=== PATIENT | female | born 1935 | race Caucasian/White ===

== ENCOUNTER 2017-06-03 09:43 | Emergency (ER) | payer MEDICARE, OTHER ==
[2017-06-03] MEDS ORDERED: Aluminum Hydroxide/Magnesium Hydroxide/Simethicone Susp 30 ML Cup PO ONE (10:49)
[2017-06-03] MEDS ORDERED: Aspirin 81 MG Tab.Chew PO ONE (11:35)
[2017-06-03] MEDS ORDERED: Aspirin 81 MG Tab.Chew ONE (11:36)
--- NOTE | 2017-06-03 11:40 | EDM.PDOC ---
ED HPI GENERAL MEDICAL PROBLEM - General Chief Complaint: General Stated Complaint: STOMACH ISSUES Time Seen by Provider: 06/03/17 10:39 Source of Information: Reports: Patient History Limitations: Reports: No Limitations - History of Present Illness INITIAL COMMENTS - FREE TEXT/NARRATIVE: This lady comes in with a complaint of upper abdominal pain. It's been going on for the last few days. The pain is on and off kind of in the epigastric region. Nothing seems to make it worse but it seems to go away when she relaxes" of her feet. She hasn't tried any kind of antiacids. She doesn't have any history of GI problems there's no history of any kind of heart disease. She did a lot of walking yesterday. She says she's Been feeling bad for a number of weeks. She seems to be better after eating according to her . This patient has Alzheimer's disease so her history is not very reliable however her keeps her on track and corrects her history is needed - Related Data Allergies Allergy/AdvReac Type Severity Reaction Status Date / Time propoxyphene Allergy Mild Rash Verified 12/13/13 13:44 Home Meds: Home Meds Donepezil HCl 10 mg PO DAILY 06/03/17 [History] Gabapentin [Neurontin] 100 mg PO DAILY 06/03/17 [History] Latanoprost [Xalatan 0.005% Ophth Soln] 1 drop EYEBOTH DAILY 06/03/17 [History] Timolol Maleate/PF [Timoptic 0.25% Ocudose Drop] 1 drop EYEBOTH DAILY 06/03/17 [ History] atorvaSTATin [Lipitor] 40 mg PO BEDTIME 06/03/17 [History] Past Medical History - Past Health History Medical/Surgical History: Denies Medical/Surgical History Neurological History: Reports: Neuropathy, Peripheral - Infectious Disease History Infectious Disease History: Reports: Chicken Pox, Measles, Mumps Social & Family History - Family History Neurological: Reports: Alzheimers Disease - Tobacco Use Smoking Status *Q: Never Smoker Second Hand Smoke Exposure: No - Caffeine Use Caffeine Use: Reports: Coffee Other Caffeine Use: 1 cup a day - Recreational Drug Use Recreational Drug Use: No ED ROS GENERAL - Review of Systems Review Of Systems: ROS reveals no pertinent complaints other than HPI. ED EXAM, GI/ABD - Physical Exam Exam: See Below Exam Limited By: No Limitations Eyes: Bilateral: Normal Appearance Ears: Normal External Exam Throat/Mouth: Normal Inspection, Normal Oropharynx Head: Atraumatic Neck: Normal Inspection Respiratory/Chest: No Respiratory Distress, Lungs Clear Cardiovascular: Normal Peripheral Pulses, Regular Rate, Rhythm (Seen her when she first came in here to really struggle to) Back Exam: Normal Inspection Extremities: Normal Inspection Neurological: Alert, CN II-XII Intact, No Motor/Sensory Deficits, Confused Psychiatric: Normal Affect Skin Exam: Warm Course - Vital Signs Last Recorded V/S: Last Vital Signs Temp 36.0 C 06/03/17 14:19 Pulse 58 L 06/03/17 14:19 Resp 14 06/03/17 14:19 BP 139/66 06/03/17 14:19 Pulse Ox 97 06/03/17 14:19 - Orders/Labs/Meds Orders: Active Orders 24 hr Category Date Time Status EKG Documentation Completion [RC] ASDIRECTED Care 06/03/17 10:49 Active EKG 12 Lead [EK] Urgent Ther 06/03/17 10:48 Ordered Labs: Laboratory Tests 06/03/17 06/03/17 06/03/17 Range/Units 10:57 10:57 10:57 WBC 5.7 (4.5-11.0) K/uL RBC 4.27 (3.30-5.50) M/uL Hgb 12.9 (12.0-15.0) g/dL Hct 38.5 (36.0-48.0) % MCV 90 (80-98) fL MCH 30 (27-31) pg MCHC 34 (32-36) % Plt Count 258 (150-400) K/uL Neut % (Auto) 51 (36-66) % Lymph % (Auto) 34 (24-44) % [place] % (Auto) 12 H (2-6) % Eos % (Auto) 2 (2-4) % Baso % (Auto) 1 (0-1) % Sodium 136 L (140-148) mmol/L Potassium 3.6 (3.6-5.2) mmol/L Chloride 98 L (100-108) mmol/L Carbon Dioxide 33 H (21-32) mmol/L Anion Gap 8.6 (5.0-14.0) mmol/L BUN 12 (7-18) mg/dL Creatinine 0.8 (0.6-1.0) mg/dL Est Cr Clr Drug Dosing 44.27 mL/min Estimated GFR (MDRD) > 60 (>60) Glucose 96 (74-106) mg/dL Calcium 9.0 (8.5-10.1) mg/dL Total Bilirubin 0.6 (0.2-1.0) mg/dL AST 33 (15-37) U/L ALT 26 (12-78) U/L Alkaline Phosphatase 47 (46-116) U/L Troponin I (0.000-0.056) ng/mL Total Protein 6.7 (6.4-8.2) g/dL Albumin 3.4 (3.4-5.0) g/dL Globulin 3.3 (2.3-3.5) g/dL Albumin/Globulin Ratio 1.0 L (1.2-2.2) Lipase 312 (73-393) U/L Urine Color Urine Appearance Urine pH (4.5-8.0) Ur Specific [place] (1.008-1.030) Urine Protein (NEGATIVE) mg/dL Urine Glucose (UA) (NEGATIVE) mg/dL Urine Ketones (NEGATIVE) mg/dL Urine Occult Blood (NEGATIVE) Urine Nitrite (NEGATIVE) Urine Bilirubin (NEGATIVE) Urine Urobilinogen (NORMAL) mg/dL Ur Leukocyte Esterase (NEGATIVE) Urine RBC (0-5) Urine WBC (0-5) Ur Epithelial Cells Amorphous Sediment Urine Bacteria Urine Mucus 06/03/17 06/03/17 Range/Units 10:57 11:29 WBC (4.5-11.0) K/uL RBC (3.30-5.50) M/uL Hgb (12.0-15.0) g/dL Hct (36.0-48.0) % MCV (80-98) fL MCH (27-31) pg MCHC (32-36) % Plt Count (150-400) K/uL Neut % (Auto) (36-66) % Lymph % (Auto) (24-44) % [place] % (Auto) (2-6) % Eos % (Auto) (2-4) % Baso % (Auto) (0-1) % Sodium (140-148) mmol/L Potassium (3.6-5.2) mmol/L Chloride (100-108) mmol/L Carbon Dioxide (21-32) mmol/L Anion Gap (5.0-14.0) mmol/L BUN (7-18) mg/dL Creatinine (0.6-1.0) mg/dL Est Cr Clr Drug Dosing mL/min Estimated GFR (MDRD) (>60) Glucose (74-106) mg/dL Calcium (8.5-10.1) mg/dL Total Bilirubin (0.2-1.0) mg/dL AST (15-37) U/L ALT (12-78) U/L Alkaline Phosphatase (46-116) U/L Troponin I 0.282 H* (0.000-0.056) ng/mL Total Protein (6.4-8.2) g/dL Albumin (3.4-5.0) g/dL Globulin (2.3-3.5) g/dL Albumin/Globulin Ratio (1.2-2.2) Lipase (73-393) U/L Urine Color Yellow Urine Appearance Clear Urine pH 6.0 (4.5-8.0) Ur Specific [place] 1.015 (1.008-1.030) Urine Protein Negative (NEGATIVE) mg/dL Urine Glucose (UA) Normal (NEGATIVE) mg/dL Urine Ketones Negative (NEGATIVE) mg/dL Urine Occult Blood Moderate (NEGATIVE) Urine Nitrite Negative (NEGATIVE) Urine Bilirubin Negative (NEGATIVE) Urine Urobilinogen Normal (NORMAL) mg/dL Ur Leukocyte Esterase Negative (NEGATIVE) Urine RBC 0-5 (0-5) Urine WBC Not seen (0-5) Ur Epithelial Cells Not seen Amorphous Sediment Not seen Urine Bacteria Not seen Urine Mucus Not seen Meds: Medications Discontinued Medications Generic Name Dose Route Start Last Admin Trade Name Freq PRN Reason Stop Dose Admin Al Hydroxide/Mg Hydroxide 30 ml 06/03/17 10:49 06/03/17 11:03 Mag-Al Plus PO 06/03/17 10:50 30 ml ONETIME ONE Administration Aspirin 324 mg 06/03/17 11:35 06/03/17 11:37 Aspirin PO 06/03/17 11:36 324 mg ONETIME ONE Administration Aspirin Confirm 06/03/17 11:36 06/03/17 11:54 Aspirin Administered 06/03/17 11:37 Not Given Dose 324 mg .ROUTE .STK-MED ONE Clopidogrel Bisulfate 600 mg 06/03/17 11:51 06/03/17 12:23 Plavix PO 06/03/17 11:52 600 mg ONETIME ONE Administration Heparin Sodium (Porcine) 4,000 units 06/03/17 11:50 06/03/17 12:22 Heparin Sodium IVPUSH 06/03/17 11:51 4,000 units ONETIME ONE Administration Metoprolol Tartrate 12.5 mg 06/03/17 11:49 06/03/17 12:24 Lopressor PO 06/03/17 11:50 12.5 mg ONETIME ONE Administration - Re-Assessments/Exams Free Text/Narrative Re-Assessment/Exam: 06/03/17 15:29 EKG shows normal sinus rhythm with no evidence of ischemia. Free Text/Narrative Re-Assessment/Exam: 06/03/17 15:29 Troponin is elevated in this lady would suggest a non-STEMI. I spoke with Dr. Duque the rn occupational health at [place] and he has accepted her. The patient received aspirin 324 mg she also received Plavix 600 mg orally heparin 4000 unit bolus and drip as per protocol. The patient has remained pain-free in our ER. They did not have an ICU bed available immediately in [place] so we kept the patient here in our ER where she remained stable. Departure - Departure Time of Disposition: 15:31 Disposition: DC/Tfer to Acute Hospital 02 Condition: Serious Clinical Impression: Non-STEMI (non-ST elevated myocardial infarction) - Discharge Information Forms: ED Department Discharge - My Orders Last 24 Hours: My Active Orders 06/03/17 10:48 EKG 12 Lead [EK] Urgent 06/03/17 10:49 EKG Documentation Completion [RC] ASDIRECTED - Assessment/Plan Last 24 Hours: My Active Orders 06/03/17 10:48 EKG 12 Lead [EK] Urgent 06/03/17 10:49 EKG Documentation Completion [RC] ASDIRECTED
[2017-06-03] MEDS ORDERED: Metoprolol Tartrate 25 MG Tab PO ONE (11:49)
[2017-06-03] MEDS ORDERED: Heparin Sodium 5,000 Units/ML Vial IVPUSH ONE (11:50)
[2017-06-03] MEDS ORDERED: Clopidogrel 75 MG Tab PO ONE (11:51)
[2017-06-03 14:20] VITALS: BP 139/66
== END 2017-06-03 15:00 ==
LOC: JP.ED 09:43
DX: I21.4 Non-ST elevation (NSTEMI) myocardial infarction (principal); Z79.899 Other long term (current) drug therapy; Z88.8 Allergy status to other drugs, medicaments and biological substances
CPT/HCPCS: 36415; 80053; 81001; 83690; 84484; 85025; 93005; 96374; 99285; A9270; J1644; 93010; 99284

== ENCOUNTER 2017-07-30 08:52 | Day surgery (SDC) | payer MEDICARE, OTHER ==
[2017-07-30] MEDS ORDERED: Dextrose 5%-Lactated Ringers 1,000 ML IV SCH (09:15)
[2017-07-30] MEDS ORDERED: Glycopyrrolate 0.2 MG/ML 2 ML SDV IVPUSH ONE (09:30)
[2017-07-30] MEDS ORDERED: Propofol 200 MG/20 ML SDV ONE (10:22)
[2017-07-30 12:14] VITALS: BP 158/69
--- NOTE | 2017-08-03 13:02 | OR ---
DATE OF PROCEDURE: 07/30/2017 PREOPERATIVE DIAGNOSIS: Upper abdominal discomfort. POSTOPERATIVE DIAGNOSIS: Upper abdominal discomfort associated with very mild diffuse gastritis. OPERATIVE PROCEDURE: Esophagogastroduodenoscopy with antral biopsies for CLOtest. ANESTHESIA: IV sedation. INDICATION FOR PROCEDURE: This is an 81-year-old female presenting with some ongoing discomfort in the epigastrium. This occurs primarily right away in the morning on an empty stomach and is relieved by oral intake. She has been on omeprazole 20 mg a day. She does state that over the last week or so now her symptoms have essentially disappeared. Plan is to proceed with upper endoscopy for diagnostic purposes at this point. Potential risks of the procedure including bleeding, infection, and perforation were all reviewed, and the patient wishes to proceed. DETAILS OF PROCEDURE: The patient was taken to the operating room and placed in a left lateral decubitus position. IV sedation was administered after which the upper GI endoscope was passed orally through the length of the esophagus, into the stomach with retroflexion view of the fundus, and thereafter through the pyloric channel and then into the proximal duodenum. Visualized hypopharynx, larynx, upper esophageal sphincter, and esophageal body were unremarkable. At the EG junction, there was a minimal hiatal hernia, but without gross inflammation at the EG junction. As one passed in the stomach, there was more or less diffuse gastritis. This was however very mild and in the proximal stomach almost non- existent grossly. The distal body and antrum were very mildly reddened and edematous. There were no ulcers or erosions noted. Pyloric sphincter was unremarkable. The duodenum to the junction of the third and fourth portions was unremarkable. At this point, biopsies were obtained from the antrum and sent for CLOtest for H. pylori. Minimal bleeding from the biopsy site was seen. The procedure then concluded. The patient was taken to the recovery room in a satisfactory condition. Plan will be to have the patient continue on the present omeprazole dose as this seems to be at this point working. She is instructed that perhaps when she is on the trip to [place] coming up, if the symptoms increase, she can go to a somewhat higher omeprazole dose. Also, she is advised that it may be worthwhile if she wakes up with the discomfort, to take some p.r.n. Gaviscon which I think would likely cool the stomach and relieve the symptoms fairly quickly as well. Otherwise, follow up with Surgery will be p.r.n. She will be following up with Karina Cho in roughly 2 weeks. Edilson Bear MD /[id number]
== END 2017-07-30 12:35 | disposition home or self-care (01) ==
LOC: JP.SDS 08:52
PROVIDERS: ATTEND Surgery
DX: K29.70 Gastritis, unspecified, without bleeding (principal); E78.5 Hyperlipidemia, unspecified; Z88.8 Allergy status to other drugs, medicaments and biological substances
CPT/HCPCS: 43239; 87081; J2704; J7042; J3490

== ENCOUNTER 2019-10-24 17:25 | Inpatient (IN) | payer MEDICARE ==
--- NOTE | 2019-10-24 18:16 | EDM.PDOC ---
ED HPI GENERAL MEDICAL PROBLEM - General Chief Complaint: General Stated Complaint: BLACKED OUT/3 EPISODES Time Seen by Provider: 10/24/19 18:02 Source of Information: Reports: Patient, Family, RN Notes Reviewed History Limitations: Reports: Physical Impairment - History of Present Illness INITIAL COMMENTS - FREE TEXT/NARRATIVE: 83-year-old female presents emergency department today with complaint of multiple falls with recent head injury today thought to be from a syncopal event. She does have a significant history of dementia that is quite severe difficult to obtain history or review of systems from her. The majority this was taken from family. Family is concerned she has been increasing weakness over the last couple of days with multiple falls did have shaking episode prior to her recent fall. - Related Data Allergies Allergy/AdvReac Type Severity Reaction Status Date / Time propoxyphene Allergy Mild Rash Verified 12/13/13 13:44 Home Meds: Home Meds Gabapentin [Neurontin] 100 mg PO DAILY 06/03/17 [History] Timolol Maleate/PF [Timoptic 0.25% Ocudose Drop] 1 drop EYEBOTH DAILY 06/03/17 [ History] Cholecalciferol (Vitamin D3) [Vitamin D3] 2,000 unit PO DAILY 07/28/17 [History] DULoxetine [Cymbalta] 60 mg PO DAILY 10/24/19 [History] Furosemide [Lasix] 80 mg PO DAILY 10/24/19 [History] Melatonin 9 mg PO BEDTIME 10/24/19 [History] Memantine HCl [Namenda Xr] 28 mg PO DAILY 10/24/19 [History] Past Medical History HEENT History: Reports: Cataract, Glaucoma, Hard of Hearing, Retinal Detachment Cardiovascular History: Reports: CAD, High Cholesterol, [place] Gastrointestinal History: Reports: GERD [employer]FF[employer]ENDANT History: Reports: Neurological History: Reports: Neuropathy, Peripheral, Other (See Below) Other Neuro History: dementia Psychiatric History: Reports: Dementia - Infectious Disease History Infectious Disease History: Reports: Chicken Pox, Measles, Mumps - Past Surgical History HEENT Surgical History: Reports: Cataract Surgery Cardiovascular Surgical History: Reports: Other (See Below) Other Cardiovascular Surgeries/Procedures: angiogram Social & Family History - Family History Neurological: Reports: Alzheimers Disease - Tobacco Use Smoking Status *Q: Never Smoker - Caffeine Use Caffeine Use: Reports: Coffee Other Caffeine Use: 1 cup a day ED ROS GENERAL - Review of Systems Review Of Systems: See Below Constitutional: Reports: No Symptoms HEENT: Reports: No Symptoms Respiratory: Reports: No Symptoms Cardiovascular: Reports: Edema, Syncope GI/Abdominal: Reports: No Symptoms : Reports: No Symptoms Musculoskeletal: Reports: No Symptoms Skin: Reports: No Symptoms ED EXAM, GENERAL - Physical Exam Exam: See Below Free Text/Narrative:: General: Female, not in any distress, alert HEENT: head is atraumatic normocephalic, eyes pupils equal round reactive to light, sclera clear no conjunctivitis appreciated, extraocular movements intact. Ears tympanic membranes clear and johnson landmarks and light reflex are present bilaterally canals are clear. Nose no septal deviation, nares are clear, no blood present. Mouth mucosa is moist and pink no erythema or exudate noted in soft palate, tongue is midline uvula is midline, dentition is intact. Neck: Supple no thyromegaly no tracheal deviation. Nodes: Cervical nodes subclavicular nodes nontender no palpable lymphadenopathy noted. Lungs: clear to auscultation bilaterally with symmetrical respirations, no adventitious noise appreciated. CV: Regular rate and rhythm S1 and S2 appreciated no murmurs rubs or gallops noted. Abdomen: Soft, nontender, no palpable masses or organomegaly appreciated, no distention no guarding bowel sounds are present, [scars ]. Neuro: Cranial nerves II test with pupillary light reflex 4 mm to 2 mm bilaterally, CN III test pupillary constriction, lid elevation and eye abduction bilaterally, CN IV downward movement of eyes bilaterally, CN V good jaw movement, CN lateral deviation of the eyes bilaterally to finger movement , CN VII symmetrical smile shows teeth without difficulty, CN VIII pass finger rub to ears bilaterally, CN IX adequate voice and tone, CN X adequate voice and tone no difficulty swallowing, CN XI can shrug shoulders without difficulty, CN XII can stick tongue out without difficulty, cranial nerves II to XII intact as tested, power 5 x 5 upper and lower extremities, no focal neurologic deficit Skin: Warm and dry, intact Extremities: RHONDA hose in place bilaterally Course - Vital Signs Last Recorded V/S: Last Vital Signs Temp 97.9 F 10/24/19 17:44 Pulse 80 10/24/19 20:17 Resp 16 10/24/19 17:44 BP 159/75 H 10/24/19 20:17 Pulse Ox 97 10/24/19 20:17 - Orders/Labs/Meds Orders: Active Orders 24 hr Category Date Time Status EKG Documentation Completion [RC] ASDIRECTED Care 10/24/19 18:11 Active UA W/MICROSCOPIC [URIN] Urgent Lab 10/24/19 18:12 Ordered EKG 12 Lead [EK] Urgent Ther 10/24/19 18:10 Ordered Labs: Laboratory Tests 10/24/19 10/24/19 10/24/19 Range/Units 18:15 18:15 18:15 WBC 8.9 (4.5-11.0) K/uL RBC 4.04 (3.30-5.50) M/uL Hgb 12.4 (12.0-15.0) g/dL Hct 38.7 (36.0-48.0) % MCV 96 (80-98) fL MCH 31 (27-31) pg MCHC 32 (32-36) % Plt Count 248 (150-400) K/uL Neut % (Auto) 58 (36-66) % Lymph % (Auto) 29 (24-44) % [place] % (Auto) 10 H (2-6) % Eos % (Auto) 4 (2-4) % Baso % (Auto) 1 (0-1) % Sodium 140 (140-148) mmol/L Potassium 3.7 (3.6-5.2) mmol/L Chloride 100 (100-108) mmol/L Carbon Dioxide 32 (21-32) mmol/L Anion Gap 7.7 (5.0-14.0) mmol/L BUN 26 H (7-18) mg/dL Creatinine 1.0 (0.6-1.0) mg/dL Est Cr Clr Drug Dosing 37.45 mL/min Estimated GFR (MDRD) 53 L (>60) Glucose 148 H (74-106) mg/dL Lactic Acid 1.4 (0.4-2.0) mmol/L Calcium 8.6 (8.5-10.1) mg/dL Total Bilirubin 0.3 (0.2-1.0) mg/dL AST 43 H (15-37) U/L ALT 44 (12-78) U/L Alkaline Phosphatase 77 (46-116) U/L Troponin I 0.171 H* (0.000-0.056) ng/mL NT-Pro-B Natriuret Pep (5-450) pg/mL Total Protein 6.8 (6.4-8.2) g/dL Albumin 3.2 L (3.4-5.0) g/dL Globulin 3.6 H (2.3-3.5) g/dL Albumin/Globulin Ratio 0.9 L (1.2-2.2) 10/24/19 Range/Units 18:52 WBC (4.5-11.0) K/uL RBC (3.30-5.50) M/uL Hgb (12.0-15.0) g/dL Hct (36.0-48.0) % MCV (80-98) fL MCH (27-31) pg MCHC (32-36) % Plt Count (150-400) K/uL Neut % (Auto) (36-66) % Lymph % (Auto) (24-44) % [place] % (Auto) (2-6) % Eos % (Auto) (2-4) % Baso % (Auto) (0-1) % Sodium (140-148) mmol/L Potassium (3.6-5.2) mmol/L Chloride (100-108) mmol/L Carbon Dioxide (21-32) mmol/L Anion Gap (5.0-14.0) mmol/L BUN (7-18) mg/dL Creatinine (0.6-1.0) mg/dL Est Cr Clr Drug Dosing mL/min Estimated GFR (MDRD) (>60) Glucose (74-106) mg/dL Lactic Acid (0.4-2.0) mmol/L Calcium (8.5-10.1) mg/dL Total Bilirubin (0.2-1.0) mg/dL AST (15-37) U/L ALT (12-78) U/L Alkaline Phosphatase (46-116) U/L Troponin I (0.000-0.056) ng/mL NT-Pro-B Natriuret Pep 193 (5-450) pg/mL Total Protein (6.4-8.2) g/dL Albumin (3.4-5.0) g/dL Globulin (2.3-3.5) g/dL Albumin/Globulin Ratio (1.2-2.2) Departure - Departure Time of Disposition: 21:01 Disposition: Admitted As Inpatient 66 Condition: Poor Clinical Impression: Non-STEMI (non-ST elevated myocardial infarction) - Discharge Information - My Orders Last 24 Hours: My Active Orders 10/24/19 18:10 EKG 12 Lead [EK] Urgent 10/24/19 18:11 EKG Documentation Completion [RC] ASDIRECTED 10/24/19 18:12 UA W/MICROSCOPIC [URIN] Urgent - Assessment/Plan Last 24 Hours: My Active Orders 10/24/19 18:10 EKG 12 Lead [EK] Urgent 10/24/19 18:11 EKG Documentation Completion [RC] ASDIRECTED 10/24/19 18:12 UA W/MICROSCOPIC [URIN] Urgent Plan: Assessment Acuity = acute Site and laterality = non-ST elevation myocardial infarction complicated the patient with severe dementia Etiology = underlying coronary artery disease Manifestations = none Location of injury = Home Lab values = CBC unremarkable CMP unremarkable troponin elevated 0.171 EKG demonstrates sinus rhythm no signs of ST elevation or depression chest x-ray shows no acute process Plan I did discuss with the family she is a DNR/DNI she recently underwent heart catheterization in 2017, family does not want any aggressive measures would just like medical management call discussed case with hospitalist on-call at [facility] currently agreed to come evaluate patient emergency department for admission This note was dictated using [employer] voice recognition software please call with any questions on syntax or grammar.
--- NOTE | 2019-10-24 19:10 | CRLCR ---
Indication: Leg Edema, Dementia Technique: Two views of the chest Comparison: None Findings: The lungs are hyperinflated. The heart is normal in size. No acute cardiopulmonary process. No infiltrate, pleural effusion, or pneumothorax is identified Impression: Hyperinflation. Dictated by Xuan Berkowitz MD @ Oct 24 2019 7:07PM Signed by Dr. Xuan Berkowitz @ Oct 24 2019 7:08PM
--- NOTE | 2019-10-24 19:12 | CRLCT ---
INDICATION: Head injury TECHNIQUE: Head CT without contrast. COMPARISON: MR brain January 17, 2016 FINDINGS: CSF spaces: Within normal limits for age. Brain parenchyma: There are nonspecific low attenuation white matter changes consistent with chronic microvascular disease. No sign of mass, hemorrhage, or midline shift. Skull base and calvarium: The visualized paranasal sinuses and mastoid air cells demonstrate no acute or significant findings. The visualized orbits are grossly unremarkable. No skull fractures. There is intracranial atherosclerosis. IMPRESSION: 1. No acute findings. 2. Nonspecific white matter disease, typical of chronic microvascular disease. Please note that all CT scans at this facility use dose modulation, iterative reconstruction, and/or weight-based dosing when appropriate to reduce radiation dose to as low as reasonably achievable. Dictated by Susan Christianson MD @ Oct 24 2019 7:10PM Signed by Dr. Susan Christianson @ Oct 24 2019 7:10PM
--- NOTE | 2019-10-24 20:41 | PCM.HP.2 ---
H&P History of Present Illness - General Date of Service: 10/24/19 Admit Problem/Dx: Admission Diagnosis/Problem Admission Diagnosis/Problem NSTEMI, initial episode of care Source of Information: Family, Provider, RN Notes Reviewed. No: Patient History Limitations: Reports: Altered Mental Status (Ecdemic and dementia) - History of Present Illness Initial Comments - Free Text/Narative: Ms. Fontanez is an 83-year-old woman who was admitted through the emergency department for further evaluation of syncope and non-ST segment elevation myocardial infarction. Unfortunately Ms. Fontanez has significant dementia and is unable to provide a meaningful history concerning recent symptoms or events. Most the history obtained for this document was from her who has not witnessed personally any of her spells or episodes of syncope. He reports staff at the assisted living status facility told him that she would have a brief episode of shaking and then lose consciousness for a very short period of time. There is no history of a post ictal episode with any of these events. Apparently she had 3 of these episodes today and was brought into the emergency department for further evaluation. CT scan of the head chest x-ray and EKG are all unremarkable, as well as laboratory studies. The only lab of significance is an elevation in troponin at 0.171. 2 years ago she was seen with abdominal pain, that time troponin was elevated above 0.2 and she was transferred to cardiology for further evaluation. Apparently no significant blockages or other abnormalities were identified on that evaluation. does not want any further aggressive interventions or evaluation, medications for management are acceptable. He feels that this is very consistent with the patient's previously expressed wishes. - Related Data Allergies/Adverse Reactions: Allergies Allergy/AdvReac Type Severity Reaction Status Date / Time propoxyphene Allergy Mild Rash Verified 12/13/13 13:44 Home Medications: Home Meds Gabapentin [Neurontin] 100 mg PO DAILY 06/03/17 [History] Timolol Maleate/PF [Timoptic 0.25% Ocudose Drop] 1 drop EYEBOTH DAILY 06/03/17 [ History] Cholecalciferol (Vitamin D3) [Vitamin D3] 2,000 unit PO DAILY 07/28/17 [History] DULoxetine [Cymbalta] 60 mg PO DAILY 10/24/19 [History] Furosemide [Lasix] 80 mg PO DAILY 10/24/19 [History] Melatonin 9 mg PO BEDTIME 10/24/19 [History] Memantine HCl [Namenda Xr] 28 mg PO DAILY 10/24/19 [History] Past Medical History - Past Health History Medical/Surgical History: Denies Medical/Surgical History HEENT History: Reports: Cataract, Glaucoma, Hard of Hearing, Retinal Detachment Cardiovascular History: Reports: CAD, High Cholesterol, PA Gastrointestinal History: Reports: GERD [employer] 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: 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: Neurological History: Reports: Neuropathy, Peripheral, Other (See Below) Other Neuro History: dementia Psychiatric History: Reports: Dementia - Infectious Disease History Infectious Disease History: Reports: Chicken Pox, Measles, Mumps - Past Surgical History HEENT Surgical History: Reports: Cataract Surgery Cardiovascular Surgical History: Reports: Other (See Below) Other Cardiovascular Surgeries/Procedures: angiogram Social & Family History - Family History Neurological: Reports: Alzheimers Disease - Tobacco Use Smoking Status *Q: Never Smoker - Caffeine Use Caffeine Use: Reports: Coffee Other Caffeine Use: 1 cup a day H&P Review of Systems - Review of Systems: Review Of Systems: See Below (Dementia) General: Reports: ROS unobtainable (Dementia) Exam - Exam Exam: See Below - Vital Signs Vital Signs: Last Vital Signs Temp 97.9 F 10/24/19 17:44 Pulse 80 10/24/19 20:17 Resp 16 10/24/19 17:44 BP 159/75 H 10/24/19 20:17 Pulse Ox 97 10/24/19 20:17 Weight: 170 lb - Exam Quality Assessment: DVT Prophylaxis General: Alert, Cooperative. No: Oriented HEENT: Conjunctiva Clear, Hearing Intact, Mucosa Moist & [place], Normal Nasal Septum, Posterior Pharynx Clear, Pupils Equal Neck: Supple, Trachea Midline, +2 Carotid Pulse wo Bruit Lungs: Clear to Auscultation, Normal Respiratory Effort Cardiovascular: Regular Rate, Regular Rhythm, Normal S1, Normal S2. No: Systolic Murmur, Diastolic Murmur GI/Abdominal Exam: Soft, Non-Tender, No Organomegaly, No Distention Back Exam: Normal Inspection, Full Range of Motion Extremities: Non-Tender, Pedal Edema Skin: Warm, Dry, Intact Neurological: Cranial Nerves Intact, Strength Equal Bilateral, Normal Speech, Normal Tone, Sensation Intact. No: Focal Deficit Neuro Extensive - Mental Status: Alert, Disorientation to Person, Disorientation to Place, Disorientation to Time, Memory Loss-Remote Events, Memory Loss-Recent Events - Patient Data Lab Results Last 24 hrs: Laboratory Results - last 24 hr 10/24/19 10/24/19 10/24/19 Range/Units 18:15 18:15 18:15 WBC 8.9 (4.5-11.0) K/uL RBC 4.04 (3.30-5.50) M/uL Hgb 12.4 (12.0-15.0) g/dL Hct 38.7 (36.0-48.0) % MCV 96 (80-98) fL MCH 31 (27-31) pg MCHC 32 (32-36) % Plt Count 248 (150-400) K/uL Neut % (Auto) 58 (36-66) % Lymph % (Auto) 29 (24-44) % [place] % (Auto) 10 H (2-6) % Eos % (Auto) 4 (2-4) % Baso % (Auto) 1 (0-1) % Sodium 140 (140-148) mmol/L Potassium 3.7 (3.6-5.2) mmol/L Chloride 100 (100-108) mmol/L Carbon Dioxide 32 (21-32) mmol/L Anion Gap 7.7 (5.0-14.0) mmol/L BUN 26 H (7-18) mg/dL Creatinine 1.0 (0.6-1.0) mg/dL Est Cr Clr Drug Dosing 37.45 mL/min Estimated GFR (MDRD) 53 L (>60) Glucose 148 H (74-106) mg/dL Lactic Acid 1.4 (0.4-2.0) mmol/L Calcium 8.6 (8.5-10.1) mg/dL Total Bilirubin 0.3 (0.2-1.0) mg/dL AST 43 H (15-37) U/L ALT 44 (12-78) U/L Alkaline Phosphatase 77 (46-116) U/L Troponin I 0.171 H* (0.000-0.056) ng/mL NT-Pro-B Natriuret Pep (5-450) pg/mL Total Protein 6.8 (6.4-8.2) g/dL Albumin 3.2 L (3.4-5.0) g/dL Globulin 3.6 H (2.3-3.5) g/dL Albumin/Globulin Ratio 0.9 L (1.2-2.2) 10/24/19 Range/Units 18:52 WBC (4.5-11.0) K/uL RBC (3.30-5.50) M/uL Hgb (12.0-15.0) g/dL Hct (36.0-48.0) % MCV (80-98) fL MCH (27-31) pg MCHC (32-36) % Plt Count (150-400) K/uL Neut % (Auto) (36-66) % Lymph % (Auto) (24-44) % Hale % (Auto) (2-6) % Eos % (Auto) (2-4) % Baso % (Auto) (0-1) % Sodium (140-148) mmol/L Potassium (3.6-5.2) mmol/L Chloride (100-108) mmol/L Carbon Dioxide (21-32) mmol/L Anion Gap (5.0-14.0) mmol/L BUN (7-18) mg/dL Creatinine (0.6-1.0) mg/dL Est Cr Clr Drug Dosing mL/min Estimated GFR (MDRD) (>60) Glucose (74-106) mg/dL Lactic Acid (0.4-2.0) mmol/L Calcium (8.5-10.1) mg/dL Total Bilirubin (0.2-1.0) mg/dL AST (15-37) U/L ALT (12-78) U/L Alkaline Phosphatase (46-116) U/L Troponin I (0.000-0.056) ng/mL NT-Pro-B Natriuret Pep 193 (5-450) pg/mL Total Protein (6.4-8.2) g/dL Albumin (3.4-5.0) g/dL Globulin (2.3-3.5) g/dL Albumin/Globulin Ratio (1.2-2.2) Result Diagrams: 10/24/19 18:15 10/24/19 18:15 *Q Meaningful Use (ADM) - VTE Risk Assess *Q Each Risk Factor Represents 1 Point: Swollen Legs, Current, Obesity ( BMI > 25 kg/m2), Acute myocardial infarction Total Score 1 Point Risk Factors: 3 Each Risk Factor Represents 2 Points: None Total Score 2 Point Risk Factors: 0 Each Risk Factor Represents 3 Points: Age 75 Years or Greater Total Score 3 Point Risk Factors: 3 Each Risk Factor Represents 5 Points: None Total Score 5 Point Risk Factors: 0 Venous Thromboembolism Risk Factor Score *Q: 6 Problem List Initiated/Reviewed/Updated: Yes Orders Last 24hrs: Active Orders 24 hr Category Date Time Status Patient Status Manage Transfer [TRANSFER] Routine ADT 10/24/19 20:28 Ordered EKG Documentation Completion [RC] ASDIRECTED Care 10/24/19 18:11 Active UA W/MICROSCOPIC [URIN] Urgent Lab 10/24/19 18:12 Ordered Resuscitation Status Routine Resus Stat 10/24/19 20:30 Ordered EKG 12 Lead [EK] Urgent Ther 10/24/19 18:10 Ordered Assessment/Plan Comment:: ASSESSMENT AND PLAN NON-ST SEGMENT ELEVATION MYOCARDIAL INFARCTION-modest elevation in troponin level, her does not want to pursue further aggressive evaluation or intervention. Medical management only with no further studies or interventions. -IV heparin non-STEMI protocol -Serial troponin levels -Consider other medications as indicated SYNCOPE-specific etiology not apparent, differential includes; hypotension and/ or cardiac dysrhythmia. No significant indication for seizures or other neurologic event -Cardiac monitoring -Hold furosemide -Orthostatic vital signs DEMENTIA -Continue outpatient medication PALLIATIVE CARE- does not want aggressive interventions, he feels that this is very consistent with the patient's previously expressed wishes MAINTENANCE ISSUES -DVT prophylaxis; current therapy with IV heparin should provide adequate DVT prophylaxis -GI prophylaxis; not indicated -Santos catheter; not indicated -Nutrition; 2 g sodium diet -Nicotine dependence; not required CODE STATUS-DNR/DNI ADMISSION STATUS-patient will be admitted to inpatient status, expect at least a 2 night hospital stay for evaluation and management of problems as outlined above. At the time of this admission I do not reasonably expected evaluation and management of this problem will require more than a 96 hour hospital stay. DISPOSITION-anticipate discharge to home after the hospital stay. PRIMARY CARE PROVIDER-Prince Masterson - Mortality Measure Prognosis:: Good
[2019-10-24] MEDS ORDERED: Heparin Sodium/D5W 25,000 UNITS/500 ML BAG IV SCH (21:02)
[2019-10-24] MEDS ORDERED: Acetaminophen 325 MG Tab PO PRN (21:02)
[2019-10-24] MEDS ORDERED: Ondansetron 4 MG/2 ML SDV IV PRN (21:02)
[2019-10-24] MEDS ORDERED: Polyethylene Glycol 3350 Powder 17 GM Packet PO PRN (21:02)
[2019-10-24] MEDS ORDERED: Sodium Chloride 0.9% 10 ML Syringe FLUSH PRN (21:02)
[2019-10-24] MEDS: Melatonin 3 MG Tab PO SCH ×2 (21:40→21:54)
[2019-10-24] MEDS: Sodium Chloride 0.9% 1,000 ML IV SCH (21:56)
[2019-10-25] MEDS ORDERED: Heparin Sodium 5,000 Units/ML Vial IVPUSH ONE (01:00)
[2019-10-25] MEDS: Memantine 10 MG Tab PO SCH ×2 (08:37→20:23)
[2019-10-25] MEDS ORDERED: Timolol Maleate 0.25% Ophth Soln 5 ML Bottle EYEBOTH SCH (09:00)
[2019-10-25] MEDS ORDERED: Potassium Chloride 20 MEQ Tab.ER PO ONE ×2 (09:00→17:41)
[2019-10-25] MEDS ORDERED: DULoxetine 30 MG Cap PO SCH (09:00)
[2019-10-25] MEDS ORDERED: Gabapentin 100 MG Cap PO SCH (09:00)
[2019-10-25] MEDS: Sodium Chloride 0.9% 1,000 ML IV SCH (11:10)
--- NOTE | 2019-10-25 17:58 | PCM.PN ---
- General Info Date of Service: 10/25/19 Subjective Update: Ms. Fontanez has been stable since admission, no significant cardiac dysrhythmias or syncopal episodes. Troponin level has remained elevated but stable and she has appeared to be very comfortable. Orthostatic blood pressures have shown significant drop with standing, making this the most likely cause of recent syncopal episodes. She is unable to provide meaningful history concerning recent symptoms or review of systems secondary to her significant dementia. - Patient Data Vitals - Most Recent: Last Vital Signs Temp 98 F 10/25/19 14:57 Pulse 82 10/25/19 14:57 Resp 16 10/25/19 14:57 BP 111/48 L 10/25/19 14:57 Pulse Ox 100 10/25/19 14:57 Orthostatic Blood Pressure [ 54/32 Standing] Orthostatic Blood Pressure [ 100/39 Sitting] Orthostatic Blood Pressure [ 91/58 Supine] Weight - Most Recent: 142 lb I&O - Last 24 Hours: Intake & Output 10/25/19 10/25/19 10/25/19 06:59 14:59 22:59 Intake Total 641 380 60 Output Total 850 Balance 641 -470 60 Lab Results Last 24 Hours: Laboratory Results - last 24 hr 10/24/19 10/24/19 10/24/19 Range/Units 18:15 18:15 18:15 WBC 8.9 (4.5-11.0) K/uL RBC 4.04 (3.30-5.50) M/uL Hgb 12.4 (12.0-15.0) g/dL Hct 38.7 (36.0-48.0) % MCV 96 (80-98) fL MCH 31 (27-31) pg MCHC 32 (32-36) % Plt Count 248 (150-400) K/uL Neut % (Auto) 58 (36-66) % Lymph % (Auto) 29 (24-44) % [place] % (Auto) 10 H (2-6) % Eos % (Auto) 4 (2-4) % Baso % (Auto) 1 (0-1) % PT (9.5-12.0) sec INR (0.80-1.20) APTT (27.0-36.0) sec Sodium 140 (140-148) mmol/L Potassium 3.7 (3.6-5.2) mmol/L Chloride 100 (100-108) mmol/L Carbon Dioxide 32 (21-32) mmol/L Anion Gap 7.7 (5.0-14.0) mmol/L BUN 26 H (7-18) mg/dL Creatinine 1.0 (0.6-1.0) mg/dL Est Cr Clr Drug Dosing 37.45 mL/min Estimated GFR (MDRD) 53 L (>60) Glucose 148 H (74-106) mg/dL Lactic Acid 1.4 (0.4-2.0) mmol/L Calcium 8.6 (8.5-10.1) mg/dL Magnesium (1.8-2.4) mg/dL Total Bilirubin 0.3 (0.2-1.0) mg/dL AST 43 H (15-37) U/L ALT 44 (12-78) U/L Alkaline Phosphatase 77 (46-116) U/L Troponin I 0.171 H* (0.000-0.056) ng/mL NT-Pro-B Natriuret Pep (5-450) pg/mL Total Protein 6.8 (6.4-8.2) g/dL Albumin 3.2 L (3.4-5.0) g/dL Globulin 3.6 H (2.3-3.5) g/dL Albumin/Globulin Ratio 0.9 L (1.2-2.2) Urine Color (YELLOW) Urine Appearance (CLEAR) Urine pH (5.0-8.0) Ur Specific [place] (1.008-1.030) Urine Protein (NEGATIVE) mg/dL Urine Glucose (UA) (NEGATIVE) mg/dL Urine Ketones (NEGATIVE) mg/dL Urine Occult Blood (NEGATIVE) Urine Nitrite (NEGATIVE) Urine Bilirubin (NEGATIVE) Urine Urobilinogen (0.2-1.0) EU/dL Ur Leukocyte Esterase (NEGATIVE) Urine RBC (0-5) Urine WBC (0-5) Ur Epithelial Cells Amorphous Sediment Urine Bacteria Urine Mucus 10/24/19 10/24/19 10/25/19 Range/Units 18:52 23:00 01:00 WBC 9.2 (4.5-11.0) K/uL RBC 3.86 (3.30-5.50) M/uL Hgb 11.7 L (12.0-15.0) g/dL Hct 36.7 (36.0-48.0) % MCV 95 (80-98) fL MCH 30 (27-31) pg MCHC 32 (32-36) % Plt Count 228 (150-400) K/uL Neut % (Auto) (36-66) % Lymph % (Auto) (24-44) % [place] % (Auto) (2-6) % Eos % (Auto) (2-4) % Baso % (Auto) (0-1) % PT (9.5-12.0) sec INR (0.80-1.20) APTT (27.0-36.0) sec Sodium (140-148) mmol/L Potassium (3.6-5.2) mmol/L Chloride (100-108) mmol/L Carbon Dioxide (21-32) mmol/L Anion Gap (5.0-14.0) mmol/L BUN (7-18) mg/dL Creatinine (0.6-1.0) mg/dL Est Cr Clr Drug Dosing mL/min Estimated GFR (MDRD) (>60) Glucose (74-106) mg/dL Lactic Acid (0.4-2.0) mmol/L Calcium (8.5-10.1) mg/dL Magnesium (1.8-2.4) mg/dL Total Bilirubin (0.2-1.0) mg/dL AST (15-37) U/L ALT (12-78) U/L Alkaline Phosphatase (46-116) U/L Troponin I 0.163 H* (0.000-0.056) ng/mL NT-Pro-B Natriuret Pep 193 (5-450) pg/mL Total Protein (6.4-8.2) g/dL Albumin (3.4-5.0) g/dL Globulin (2.3-3.5) g/dL Albumin/Globulin Ratio (1.2-2.2) Urine Color (YELLOW) Urine Appearance (CLEAR) Urine pH (5.0-8.0) Ur Specific [place] (1.008-1.030) Urine Protein (NEGATIVE) mg/dL Urine Glucose (UA) (NEGATIVE) mg/dL Urine Ketones (NEGATIVE) mg/dL Urine Occult Blood (NEGATIVE) Urine Nitrite (NEGATIVE) Urine Bilirubin (NEGATIVE) Urine Urobilinogen (0.2-1.0) EU/dL Ur Leukocyte Esterase (NEGATIVE) Urine RBC (0-5) Urine WBC (0-5) Ur Epithelial Cells Amorphous Sediment Urine Bacteria Urine Mucus 10/25/19 10/25/19 10/25/19 Range/Units 01:00 01:30 04:00 WBC 7.4 (4.5-11.0) K/uL RBC 3.64 (3.30-5.50) M/uL Hgb 11.0 L (12.0-15.0) g/dL Hct 34.7 L (36.0-48.0) % MCV 95 (80-98) fL MCH 30 (27-31) pg MCHC 32 (32-36) % Plt Count 230 (150-400) K/uL Neut % (Auto) 58 (36-66) % Lymph % (Auto) 30 (24-44) % [place] % (Auto) 8 H (2-6) % Eos % (Auto) 3 (2-4) % Baso % (Auto) 1 (0-1) % PT 10.9 (9.5-12.0) sec INR 1.01 (0.80-1.20) APTT 26.4 L (27.0-36.0) sec Sodium (140-148) mmol/L Potassium (3.6-5.2) mmol/L Chloride (100-108) mmol/L Carbon Dioxide (21-32) mmol/L Anion Gap (5.0-14.0) mmol/L BUN (7-18) mg/dL Creatinine (0.6-1.0) mg/dL Est Cr Clr Drug Dosing mL/min Estimated GFR (MDRD) (>60) Glucose (74-106) mg/dL Lactic Acid (0.4-2.0) mmol/L Calcium (8.5-10.1) mg/dL Magnesium (1.8-2.4) mg/dL Total Bilirubin (0.2-1.0) mg/dL AST (15-37) U/L ALT (12-78) U/L Alkaline Phosphatase (46-116) U/L Troponin I (0.000-0.056) ng/mL NT-Pro-B Natriuret Pep (5-450) pg/mL Total Protein (6.4-8.2) g/dL Albumin (3.4-5.0) g/dL Globulin (2.3-3.5) g/dL Albumin/Globulin Ratio (1.2-2.2) Urine Color (YELLOW) Urine Appearance (CLEAR) Urine pH (5.0-8.0) Ur Specific [place] (1.008-1.030) Urine Protein (NEGATIVE) mg/dL Urine Glucose (UA) (NEGATIVE) mg/dL Urine Ketones (NEGATIVE) mg/dL Urine Occult Blood (NEGATIVE) Urine Nitrite (NEGATIVE) Urine Bilirubin (NEGATIVE) Urine Urobilinogen (0.2-1.0) EU/dL Ur Leukocyte Esterase (NEGATIVE) Urine RBC (0-5) Urine WBC (0-5) Ur Epithelial Cells Amorphous Sediment Urine Bacteria Urine Mucus 10/25/19 10/25/19 10/25/19 Range/Units 04:00 07:38 12:12 WBC (4.5-11.0) K/uL RBC (3.30-5.50) M/uL Hgb (12.0-15.0) g/dL Hct (36.0-48.0) % MCV (80-98) fL MCH (27-31) pg MCHC (32-36) % Plt Count (150-400) K/uL Neut % (Auto) (36-66) % Lymph % (Auto) (24-44) % [place] % (Auto) (2-6) % Eos % (Auto) (2-4) % Baso % (Auto) (0-1) % PT (9.5-12.0) sec INR (0.80-1.20) APTT 61.8 H (27.0-36.0) sec Sodium 141 (140-148) mmol/L Potassium 3.5 L (3.6-5.2) mmol/L Chloride 103 (100-108) mmol/L Carbon Dioxide 32 (21-32) mmol/L Anion Gap 9.5 (5.0-14.0) mmol/L BUN 22 H (7-18) mg/dL Creatinine 0.8 (0.6-1.0) mg/dL Est Cr Clr Drug Dosing 47.16 mL/min Estimated GFR (MDRD) > 60 (>60) Glucose 109 H (74-106) mg/dL Lactic Acid (0.4-2.0) mmol/L Calcium 8.3 L (8.5-10.1) mg/dL Magnesium 2.1 (1.8-2.4) mg/dL Total Bilirubin (0.2-1.0) mg/dL AST (15-37) U/L ALT (12-78) U/L Alkaline Phosphatase (46-116) U/L Troponin I 0.168 H* (0.000-0.056) ng/mL NT-Pro-B Natriuret Pep (5-450) pg/mL Total Protein (6.4-8.2) g/dL Albumin (3.4-5.0) g/dL Globulin (2.3-3.5) g/dL Albumin/Globulin Ratio (1.2-2.2) Urine Color Yellow (YELLOW) Urine Appearance Clear (CLEAR) Urine pH 8.5 H (5.0-8.0) Ur Specific [place] 1.015 (1.008-1.030) Urine Protein Negative (NEGATIVE) mg/dL Urine Glucose (UA) Negative (NEGATIVE) mg/dL Urine Ketones Negative (NEGATIVE) mg/dL Urine Occult Blood Negative (NEGATIVE) Urine Nitrite Negative (NEGATIVE) Urine Bilirubin Negative (NEGATIVE) Urine Urobilinogen 1.0 (0.2-1.0) EU/dL Ur Leukocyte Esterase Negative (NEGATIVE) Urine RBC Not seen (0-5) Urine WBC Not seen (0-5) Ur Epithelial Cells Not seen Amorphous Sediment Not seen Urine Bacteria Not seen Urine Mucus Not seen 10/25/19 Range/Units 13:37 WBC (4.5-11.0) K/uL RBC (3.30-5.50) M/uL Hgb (12.0-15.0) g/dL Hct (36.0-48.0) % MCV (80-98) fL MCH (27-31) pg MCHC (32-36) % Plt Count (150-400) K/uL Neut % (Auto) (36-66) % Lymph % (Auto) (24-44) % [place] % (Auto) (2-6) % Eos % (Auto) (2-4) % Baso % (Auto) (0-1) % PT (9.5-12.0) sec INR (0.80-1.20) APTT 54.9 H (27.0-36.0) sec Sodium (140-148) mmol/L Potassium (3.6-5.2) mmol/L Chloride (100-108) mmol/L Carbon Dioxide (21-32) mmol/L Anion Gap (5.0-14.0) mmol/L BUN (7-18) mg/dL Creatinine (0.6-1.0) mg/dL Est Cr Clr Drug Dosing mL/min Estimated GFR (MDRD) (>60) Glucose (74-106) mg/dL Lactic Acid (0.4-2.0) mmol/L Calcium (8.5-10.1) mg/dL Magnesium (1.8-2.4) mg/dL Total Bilirubin (0.2-1.0) mg/dL AST (15-37) U/L ALT (12-78) U/L Alkaline Phosphatase (46-116) U/L Troponin I (0.000-0.056) ng/mL NT-Pro-B Natriuret Pep (5-450) pg/mL Total Protein (6.4-8.2) g/dL Albumin (3.4-5.0) g/dL Globulin (2.3-3.5) g/dL Albumin/Globulin Ratio (1.2-2.2) Urine Color (YELLOW) Urine Appearance (CLEAR) Urine pH (5.0-8.0) Ur Specific [place] (1.008-1.030) Urine Protein (NEGATIVE) mg/dL Urine Glucose (UA) (NEGATIVE) mg/dL Urine Ketones (NEGATIVE) mg/dL Urine Occult Blood (NEGATIVE) Urine Nitrite (NEGATIVE) Urine Bilirubin (NEGATIVE) Urine Urobilinogen (0.2-1.0) EU/dL Ur Leukocyte Esterase (NEGATIVE) Urine RBC (0-5) Urine WBC (0-5) Ur Epithelial Cells Amorphous Sediment Urine Bacteria Urine Mucus Med Orders - Current: Current Medications Acetaminophen (Tylenol) 650 mg PO Q4H PRN PRN Reason: Pain (Mild 1-3)/fever Last Admin: 10/25/19 06:38 Dose: 650 mg Duloxetine HCl (Cymbalta) 60 mg PO DAILY [facility] Last Admin: 10/25/19 08:37 Dose: 60 mg Gabapentin (Neurontin) 100 mg PO DAILY [facility] Last Admin: 10/25/19 08:37 Dose: 100 mg Melatonin (Melatonin) 9 mg PO BEDTIME [facility] Last Admin: 10/24/19 21:54 Dose: Not Given Memantine (Namenda) 10 mg PO BID [facility] Last Admin: 10/25/19 08:37 Dose: 10 mg Ondansetron HCl (Zofran) 4 mg IV Q4H PRN PRN Reason: Nausea/Vomiting Polyethylene Glycol (Miralax) 17 gm PO DAILY PRN PRN Reason: Constipation Potassium Chloride (Klor-Con M20) 40 meq PO ONETIME ONE Stop: 10/25/19 17:42 Sodium Chloride (Saline Flush) 10 ml FLUSH ASDIRECTED PRN PRN Reason: Keep Vein Open Timolol Maleate (Timoptic 0.25% Ophth Soln) 0 ml EYEBOTH DAILY [facility] Last Admin: 10/25/19 08:37 Dose: 1 drop Discontinued Medications Heparin Sodium (Porcine) (Heparin Sodium) 4,000 units IVPUSH .BOLUS ONE Stop: 10/25/19 01:01 Last Admin: 10/25/19 01:36 Dose: 4,000 units Heparin Sodium/Dextrose (Heparin 25,000 Units In D5w 500 Ml) 25,000 units in 500 mls @ 15.45 mls/hr IV TITRATE MAYTE; Protocol Last Admin: 10/25/19 01:38 Dose: 15.4 mls/hr Sodium Chloride (Normal Saline) 1,000 mls @ 75 mls/hr IV ASDIRECTED [facility] Last Admin: 10/25/19 11:10 Dose: 75 mls/hr Potassium Chloride (Klor-Con M20) 40 meq PO ONETIME ONE Stop: 10/25/19 09:01 Last Admin: 10/25/19 10:25 Dose: 40 meq - Exam General: Alert, Cooperative, No Acute Distress. No: Oriented Lungs: Clear to Auscultation, Normal Respiratory Effort Cardiovascular: Regular Rate, Regular Rhythm, No Murmurs GI/Abdominal Exam: Soft, Non-Tender, No Organomegaly, No Distention Extremities: Non-Tender, No Pedal Edema - Problem List Review Problem List Initiated/Reviewed/Updated: Yes - My Orders Last 24 Hours: My Active Orders 10/24/19 20:30 Resuscitation Status Routine 10/24/19 21:02 Patient Status [ADT] Routine Ambulate [RC] QID Cardiac Monitoring [RC] .As Directed Height and Weight [RC] DAILY Intake and Output [RC] QSHIFT Notify Provider Vital Signs [RC] ASDIRECTED Orthostatic Vital Signs [RC] Q6HR Oxygen Therapy [RC] PRN Peripheral IV Care [RC] . DIRECTED Up With Assistance [RC] ASDIRECTED Up to Chair [RC] QID VTE/DVT Education [RC] Per Unit Routine Vital Signs [RC] 07,11,15,, Acetaminophen [Tylenol] 650 mg PO Q4H PRN Melatonin 9 mg PO BEDTIME Ondansetron [Zofran] 4 mg IV Q4H PRN Polyethylene Glycol 3350 [MiraLAX] 17 gm PO DAILY PRN Sodium Chloride 0.9% [Saline Flush] 10 ml FLUSH ASDIRECTED PRN Peripheral IV Insertion Adult [OM.PC] Routine VTE Pharmacological Contraindications [AST] Per Unit Routine 10/25/19 09:00 DULoxetine [Cymbalta] 60 mg PO DAILY Gabapentin [Neurontin] 100 mg PO DAILY Memantine [Namenda] 10 mg PO BID Timolol Maleate [Timoptic 0.25% Ophth Soln] 0 ml EYEBOTH DAILY 10/25/19 12:30 Insert Urinary Catheter [OM.PC] Q24H Urinary Catheter Assessment [RC] ASDIRECTED 10/25/19 17:40 Convert IV to Saline Lock [OM.PC] Routine 10/25/19 17:41 Potassium Chloride [Klor-Con M20] 40 meq PO ONETIME ONE 10/26/19 05:00 aPTT [PTT,PARTIAL THROMBOPLSTIN TIME] [COAG] Routine 10/26/19 05:11 POTASSIUM,K [CHEM] AM - Plan Plan:: ASSESSMENT AND PLAN NON-ST SEGMENT ELEVATION MYOCARDIAL INFARCTION-troponin level has remained modestly elevated at did not increase significantly. -Discontinue IV heparin -Hold on additional medications because of her orthostasis SYNCOPE-we have seen significant drops with orthostatic blood pressures, making this the most likely cause of recent syncopal episodes. There've been no significant cardiac dysrhythmias. -Cardiac monitoring -Hold furosemide -Orthostatic vital signs -Head of bed elevated at 45 -Thigh High support hose DEMENTIA -Continue outpatient medication PALLIATIVE CARE- does not want aggressive interventions, he feels that this is very consistent with the patient's previously expressed wishes MAINTENANCE ISSUES -DVT prophylaxis; -GI prophylaxis; not indicated -Santos catheter; not indicated -Nutrition; 2 g sodium diet -Nicotine dependence; not required CODE STATUS-DNR/DNI ADMISSION STATUS-patient will be admitted to inpatient status, expect at least a 2 night hospital stay for evaluation and management of problems as outlined above. At the time of this admission I do not reasonably expected evaluation and management of this problem will require more than a 96 hour hospital stay. DISPOSITION-anticipate discharge to home after the hospital stay. PRIMARY CARE PROVIDER-Prince Masterson
--- NOTE | 2019-10-25 18:08 | PCM.DCSUM1 ---
Discharge Summary - Hospital Course Brief History: Ms. Fontanez is an 83-year-old woman who was admitted through the emergency department for further evaluation and management of syncope and non-ST segment elevation myocardial infarction. - Discharge Data Discharge Date: 10/25/19 Discharge Disposition: Home, Self-Care 01 Condition: Stable - Referral to Home Health Primary Care Physician: Prince Masterson NP - Discharge Diagnosis/Problem(s) (1) Syncope SNOMED Code(s): 911552860 ICD Code: R55 - SYNCOPE AND COLLAPSE Status: Acute Current Visit: Yes (2) Orthostatic hypotension SNOMED Code(s): 49451346 ICD Code: I95.1 - ORTHOSTATIC HYPOTENSION Status: Acute Current Visit: Yes (3) Non-STEMI (non-ST elevated myocardial infarction) SNOMED Code(s): 84123740 ICD Code: I21.4 - NON-ST ELEVATION (NSTEMI) MYOCARDIAL INFARCTION Status: Acute Current Visit: Yes (4) Alzheimer's dementia SNOMED Code(s): 56717479 ICD Code: G30.9 - ALZHEIMER'S DISEASE, UNSPECIFIED; F02.80 - DEMENTIA IN OTH DISEASES CLASSD ELSWHR W/O BEHAVRL DISTURB Status: Chronic Current Visit: No (5) Palliative care status SNOMED Code(s): 358206246 ICD Code: Z51.5 - ENCOUNTER FOR PALLIATIVE CARE Status: Acute Current Visit: Yes - Patient Summary/Data Hospital Course: Ms. Fontanez is an 83-year-old woman who was admitted through the emergency department for further evaluation of syncope and non-ST segment elevation myocardial infarction. Unfortunately Ms. Fontanez has significant dementia and is unable to provide a meaningful history concerning recent symptoms or events. Most the history obtained for this document was from her who has not witnessed personally any of her spells or episodes of syncope. He reports staff at the assisted living status facility told him that she would have a brief episode of shaking and then lose consciousness for a very short period of time. There is no history of a post ictal episode with any of these events. Apparently she had 3 of these episodes today and was brought into the emergency department for further evaluation. CT scan of the head chest x-ray and EKG are all unremarkable, as well as laboratory studies. The only lab of significance is an elevation in troponin at 0.171. 2 years ago she was seen with abdominal pain, that time troponin was elevated above 0.2 and she was transferred to cardiology for further evaluation. Apparently no significant blockages or other abnormalities were identified on that evaluation. does not want any further aggressive interventions or evaluation, medications for management are acceptable. He feels that this is very consistent with the patient's previously expressed wishes. On admission she was placed on IV heparin for management of her non-ST segment elevation myocardial infarction. Cardiac monitoring showed no evidence of significant dysrhythmias during her hospital stay. Serial troponin levels were obtained and remained modestly elevated but did not increase significantly. Orthostatic vital signs did show significant drop in blood pressure was standing, making this the most likely etiology of her recent syncopal episodes. Furosemide was discontinued during the hospital stay. No additional medications were added for management of her non-ST segment elevation infarct because of her significant orthostasis. She also was noted to have urinary retention, urinalysis was obtained showing no evidence of urinary tract infection. Urinary retention was felt to be secondary to current therapy with Cymbalta. Dose of Cymbalta was decreased to 30 mg per day, with the plan to taper further as an outpatient. He comes of the orthostasis she will be placed in thigh high support hose and we will plan to keep the head of her bed elevated at 45. Will not increase sodium in her diet because of her history of fluid retention with significant peripheral edema. Activity will be as tolerated and she will resume her usual diet. - Patient Instructions Diet: Usual Diet as Tolerated Activity: As Tolerated Other/Special Instructions: Thigh-high support hose, on in a.m. off at at bedtime. Keep head of bed elevated at 45 at all times. Please schedule follow- up appointment with primary care provider within one week. - Discharge Plan *PRESCRIPTION DRUG MONITORING PROGRAM REVIEWED*: Not Applicable *COPY OF PRESCRIPTION DRUG MONITORING REPORT IN PATIENT JACOB: Not Applicable Prescriptions/Med Rec: DULoxetine [Cymbalta] 30 mg PO DAILY #30 cap Home Medications: Home Meds Gabapentin [Neurontin] 400 mg PO DAILY 06/03/17 [History] Timolol Maleate/PF [Timoptic 0.25% Ocudose Drop] 1 drop EYEBOTH DAILY 06/03/17 [ History] Cholecalciferol (Vitamin D3) [Vitamin D3] 2,000 unit PO DAILY 07/28/17 [History] Acetaminophen 650 mg PO Q4HR PRN 10/24/19 [History] Latanoprost/Pf [Latanoprost 0.005% Eye Drop] 1 drop EYEBOTH BEDTIME 10/24/19 [ History] Melatonin 9 mg PO BEDTIME 10/24/19 [History] Memantine HCl [Namenda Xr] 28 mg PO DAILY 10/24/19 [History] DULoxetine [Cymbalta] 30 mg PO DAILY #30 cap 10/25/19 [Rx] Referrals: Prince Masterson, [employer] [Primary Care Provider] - - Discharge Summary/Plan Comment DC Time >30 min.: No - Patient Data Vitals - Most Recent: Last Vital Signs Temp 98 F 10/25/19 14:57 Pulse 82 10/25/19 14:57 Resp 16 10/25/19 14:57 BP 111/48 L 10/25/19 14:57 Pulse Ox 100 10/25/19 14:57 Orthostatic Blood Pressure [ 54/32 Standing] Orthostatic Blood Pressure [ 100/39 Sitting] Orthostatic Blood Pressure [ 91/58 Supine] Weight - Most Recent: 142 lb I&O - Last 24 hours: Intake & Output 10/25/19 10/25/19 10/25/19 06:59 14:59 22:59 Intake Total 641 380 300 Output Total 850 Balance 641 -470 300 Lab Results - Last 24 hrs: Laboratory Results - last 24 hr 10/24/19 10/24/19 10/24/19 Range/Units 18:15 18:15 18:15 WBC 8.9 (4.5-11.0) K/uL RBC 4.04 (3.30-5.50) M/uL Hgb 12.4 (12.0-15.0) g/dL Hct 38.7 (36.0-48.0) % MCV 96 (80-98) fL MCH 31 (27-31) pg MCHC 32 (32-36) % Plt Count 248 (150-400) K/uL Neut % (Auto) 58 (36-66) % Lymph % (Auto) 29 (24-44) % [place] % (Auto) 10 H (2-6) % Eos % (Auto) 4 (2-4) % Baso % (Auto) 1 (0-1) % PT (9.5-12.0) sec INR (0.80-1.20) APTT (27.0-36.0) sec Sodium 140 (140-148) mmol/L Potassium 3.7 (3.6-5.2) mmol/L Chloride 100 (100-108) mmol/L Carbon Dioxide 32 (21-32) mmol/L Anion Gap 7.7 (5.0-14.0) mmol/L BUN 26 H (7-18) mg/dL Creatinine 1.0 (0.6-1.0) mg/dL Est Cr Clr Drug Dosing 37.45 mL/min Estimated GFR (MDRD) 53 L (>60) Glucose 148 H (74-106) mg/dL Lactic Acid 1.4 (0.4-2.0) mmol/L Calcium 8.6 (8.5-10.1) mg/dL Magnesium (1.8-2.4) mg/dL Total Bilirubin 0.3 (0.2-1.0) mg/dL AST 43 H (15-37) U/L ALT 44 (12-78) U/L Alkaline Phosphatase 77 (46-116) U/L Troponin I 0.171 H* (0.000-0.056) ng/mL NT-Pro-B Natriuret Pep (5-450) pg/mL Total Protein 6.8 (6.4-8.2) g/dL Albumin 3.2 L (3.4-5.0) g/dL Globulin 3.6 H (2.3-3.5) g/dL Albumin/Globulin Ratio 0.9 L (1.2-2.2) Urine Color (YELLOW) Urine Appearance (CLEAR) Urine pH (5.0-8.0) Ur Specific [place] (1.008-1.030) Urine Protein (NEGATIVE) mg/dL Urine Glucose (UA) (NEGATIVE) mg/dL Urine Ketones (NEGATIVE) mg/dL Urine Occult Blood (NEGATIVE) Urine Nitrite (NEGATIVE) Urine Bilirubin (NEGATIVE) Urine Urobilinogen (0.2-1.0) EU/dL Ur Leukocyte Esterase (NEGATIVE) Urine RBC (0-5) Urine WBC (0-5) Ur Epithelial Cells Amorphous Sediment Urine Bacteria Urine Mucus 10/24/19 10/24/19 10/25/19 Range/Units 18:52 23:00 01:00 WBC 9.2 (4.5-11.0) K/uL RBC 3.86 (3.30-5.50) M/uL Hgb 11.7 L (12.0-15.0) g/dL Hct 36.7 (36.0-48.0) % MCV 95 (80-98) fL MCH 30 (27-31) pg MCHC 32 (32-36) % Plt Count 228 (150-400) K/uL Neut % (Auto) (36-66) % Lymph % (Auto) (24-44) % [place] % (Auto) (2-6) % Eos % (Auto) (2-4) % Baso % (Auto) (0-1) % PT (9.5-12.0) sec INR (0.80-1.20) APTT (27.0-36.0) sec Sodium (140-148) mmol/L Potassium (3.6-5.2) mmol/L Chloride (100-108) mmol/L Carbon Dioxide (21-32) mmol/L Anion Gap (5.0-14.0) mmol/L BUN (7-18) mg/dL Creatinine (0.6-1.0) mg/dL Est Cr Clr Drug Dosing mL/min Estimated GFR (MDRD) (>60) Glucose (74-106) mg/dL Lactic Acid (0.4-2.0) mmol/L Calcium (8.5-10.1) mg/dL Magnesium (1.8-2.4) mg/dL Total Bilirubin (0.2-1.0) mg/dL AST (15-37) U/L ALT (12-78) U/L Alkaline Phosphatase (46-116) U/L Troponin I 0.163 H* (0.000-0.056) ng/mL NT-Pro-B Natriuret Pep 193 (5-450) pg/mL Total Protein (6.4-8.2) g/dL Albumin (3.4-5.0) g/dL Globulin (2.3-3.5) g/dL Albumin/Globulin Ratio (1.2-2.2) Urine Color (YELLOW) Urine Appearance (CLEAR) Urine pH (5.0-8.0) Ur Specific [place] (1.008-1.030) Urine Protein (NEGATIVE) mg/dL Urine Glucose (UA) (NEGATIVE) mg/dL Urine Ketones (NEGATIVE) mg/dL Urine Occult Blood (NEGATIVE) Urine Nitrite (NEGATIVE) Urine Bilirubin (NEGATIVE) Urine Urobilinogen (0.2-1.0) EU/dL Ur Leukocyte Esterase (NEGATIVE) Urine RBC (0-5) Urine WBC (0-5) Ur Epithelial Cells Amorphous Sediment Urine Bacteria Urine Mucus 10/25/19 10/25/19 10/25/19 Range/Units 01:00 01:30 04:00 WBC 7.4 (4.5-11.0) K/uL RBC 3.64 (3.30-5.50) M/uL Hgb 11.0 L (12.0-15.0) g/dL Hct 34.7 L (36.0-48.0) % MCV 95 (80-98) fL MCH 30 (27-31) pg MCHC 32 (32-36) % Plt Count 230 (150-400) K/uL Neut % (Auto) 58 (36-66) % Lymph % (Auto) 30 (24-44) % [place] % (Auto) 8 H (2-6) % Eos % (Auto) 3 (2-4) % Baso % (Auto) 1 (0-1) % PT 10.9 (9.5-12.0) sec INR 1.01 (0.80-1.20) APTT 26.4 L (27.0-36.0) sec Sodium (140-148) mmol/L Potassium (3.6-5.2) mmol/L Chloride (100-108) mmol/L Carbon Dioxide (21-32) mmol/L Anion Gap (5.0-14.0) mmol/L BUN (7-18) mg/dL Creatinine (0.6-1.0) mg/dL Est Cr Clr Drug Dosing mL/min Estimated GFR (MDRD) (>60) Glucose (74-106) mg/dL Lactic Acid (0.4-2.0) mmol/L Calcium (8.5-10.1) mg/dL Magnesium (1.8-2.4) mg/dL Total Bilirubin (0.2-1.0) mg/dL AST (15-37) U/L ALT (12-78) U/L Alkaline Phosphatase (46-116) U/L Troponin I (0.000-0.056) ng/mL NT-Pro-B Natriuret Pep (5-450) pg/mL Total Protein (6.4-8.2) g/dL Albumin (3.4-5.0) g/dL Globulin (2.3-3.5) g/dL Albumin/Globulin Ratio (1.2-2.2) Urine Color (YELLOW) Urine Appearance (CLEAR) Urine pH (5.0-8.0) Ur Specific [place] (1.008-1.030) Urine Protein (NEGATIVE) mg/dL Urine Glucose (UA) (NEGATIVE) mg/dL Urine Ketones (NEGATIVE) mg/dL Urine Occult Blood (NEGATIVE) Urine Nitrite (NEGATIVE) Urine Bilirubin (NEGATIVE) Urine Urobilinogen (0.2-1.0) EU/dL Ur Leukocyte Esterase (NEGATIVE) Urine RBC (0-5) Urine WBC (0-5) Ur Epithelial Cells Amorphous Sediment Urine Bacteria Urine Mucus 10/25/19 10/25/19 10/25/19 Range/Units 04:00 07:38 12:12 WBC (4.5-11.0) K/uL RBC (3.30-5.50) M/uL Hgb (12.0-15.0) g/dL Hct (36.0-48.0) % MCV (80-98) fL MCH (27-31) pg MCHC (32-36) % Plt Count (150-400) K/uL Neut % (Auto) (36-66) % Lymph % (Auto) (24-44) % [place] % (Auto) (2-6) % Eos % (Auto) (2-4) % Baso % (Auto) (0-1) % PT (9.5-12.0) sec INR (0.80-1.20) APTT 61.8 H (27.0-36.0) sec Sodium 141 (140-148) mmol/L Potassium 3.5 L (3.6-5.2) mmol/L Chloride 103 (100-108) mmol/L Carbon Dioxide 32 (21-32) mmol/L Anion Gap 9.5 (5.0-14.0) mmol/L BUN 22 H (7-18) mg/dL Creatinine 0.8 (0.6-1.0) mg/dL Est Cr Clr Drug Dosing 47.16 mL/min Estimated GFR (MDRD) > 60 (>60) Glucose 109 H (74-106) mg/dL Lactic Acid (0.4-2.0) mmol/L Calcium 8.3 L (8.5-10.1) mg/dL Magnesium 2.1 (1.8-2.4) mg/dL Total Bilirubin (0.2-1.0) mg/dL AST (15-37) U/L ALT (12-78) U/L Alkaline Phosphatase (46-116) U/L Troponin I 0.168 H* (0.000-0.056) ng/mL NT-Pro-B Natriuret Pep (5-450) pg/mL Total Protein (6.4-8.2) g/dL Albumin (3.4-5.0) g/dL Globulin (2.3-3.5) g/dL Albumin/Globulin Ratio (1.2-2.2) Urine Color Yellow (YELLOW) Urine Appearance Clear (CLEAR) Urine pH 8.5 H (5.0-8.0) Ur Specific [place] 1.015 (1.008-1.030) Urine Protein Negative (NEGATIVE) mg/dL Urine Glucose (UA) Negative (NEGATIVE) mg/dL Urine Ketones Negative (NEGATIVE) mg/dL Urine Occult Blood Negative (NEGATIVE) Urine Nitrite Negative (NEGATIVE) Urine Bilirubin Negative (NEGATIVE) Urine Urobilinogen 1.0 (0.2-1.0) EU/dL Ur Leukocyte Esterase Negative (NEGATIVE) Urine RBC Not seen (0-5) Urine WBC Not seen (0-5) Ur Epithelial Cells Not seen Amorphous Sediment Not seen Urine Bacteria Not seen Urine Mucus Not seen 10/25/19 Range/Units 13:37 WBC (4.5-11.0) K/uL RBC (3.30-5.50) M/uL Hgb (12.0-15.0) g/dL Hct (36.0-48.0) % MCV (80-98) fL MCH (27-31) pg MCHC (32-36) % Plt Count (150-400) K/uL Neut % (Auto) (36-66) % Lymph % (Auto) (24-44) % Weber % (Auto) (2-6) % Eos % (Auto) (2-4) % Baso % (Auto) (0-1) % PT (9.5-12.0) sec INR (0.80-1.20) APTT 54.9 H (27.0-36.0) sec Sodium (140-148) mmol/L Potassium (3.6-5.2) mmol/L Chloride (100-108) mmol/L Carbon Dioxide (21-32) mmol/L Anion Gap (5.0-14.0) mmol/L BUN (7-18) mg/dL Creatinine (0.6-1.0) mg/dL Est Cr Clr Drug Dosing mL/min Estimated GFR (MDRD) (>60) Glucose (74-106) mg/dL Lactic Acid (0.4-2.0) mmol/L Calcium (8.5-10.1) mg/dL Magnesium (1.8-2.4) mg/dL Total Bilirubin (0.2-1.0) mg/dL AST (15-37) U/L ALT (12-78) U/L Alkaline Phosphatase (46-116) U/L Troponin I (0.000-0.056) ng/mL NT-Pro-B Natriuret Pep (5-450) pg/mL Total Protein (6.4-8.2) g/dL Albumin (3.4-5.0) g/dL Globulin (2.3-3.5) g/dL Albumin/Globulin Ratio (1.2-2.2) Urine Color (YELLOW) Urine Appearance (CLEAR) Urine pH (5.0-8.0) Ur Specific [place] (1.008-1.030) Urine Protein (NEGATIVE) mg/dL Urine Glucose (UA) (NEGATIVE) mg/dL Urine Ketones (NEGATIVE) mg/dL Urine Occult Blood (NEGATIVE) Urine Nitrite (NEGATIVE) Urine Bilirubin (NEGATIVE) Urine Urobilinogen (0.2-1.0) EU/dL Ur Leukocyte Esterase (NEGATIVE) Urine RBC (0-5) Urine WBC (0-5) Ur Epithelial Cells Amorphous Sediment Urine Bacteria Urine Mucus Med Orders - Current: Current Medications Acetaminophen (Tylenol) 650 mg PO Q4H PRN PRN Reason: Pain (Mild 1-3)/fever Last Admin: 10/25/19 06:38 Dose: 650 mg Duloxetine HCl (Cymbalta) 60 mg PO DAILY [facility] Last Admin: 10/25/19 08:37 Dose: 60 mg Gabapentin (Neurontin) 100 mg PO DAILY [facility] Last Admin: 10/25/19 08:37 Dose: 100 mg Melatonin (Melatonin) 9 mg PO BEDTIME [facility] Last Admin: 10/24/19 21:54 Dose: Not Given Memantine (Namenda) 10 mg PO BID [facility] Last Admin: 10/25/19 08:37 Dose: 10 mg Ondansetron HCl (Zofran) 4 mg IV Q4H PRN PRN Reason: Nausea/Vomiting Polyethylene Glycol (Miralax) 17 gm PO DAILY PRN PRN Reason: Constipation Sodium Chloride (Saline Flush) 10 ml FLUSH ASDIRECTED PRN PRN Reason: Keep Vein Open Timolol Maleate (Timoptic 0.25% Ophth Soln) 0 ml EYEBOTH DAILY [facility] Last Admin: 10/25/19 08:37 Dose: 1 drop Discontinued Medications Heparin Sodium (Porcine) (Heparin Sodium) 4,000 units IVPUSH .BOLUS ONE Stop: 10/25/19 01:01 Last Admin: 10/25/19 01:36 Dose: 4,000 units Heparin Sodium/Dextrose (Heparin 25,000 Units In D5w 500 Ml) 25,000 units in 500 mls @ 15.45 mls/hr IV TITRATE [facility]; Protocol Last Admin: 10/25/19 01:38 Dose: 15.4 mls/hr Sodium Chloride (Normal Saline) 1,000 mls @ 75 mls/hr IV ASDIRECTED [facility] Last Admin: 10/25/19 11:10 Dose: 75 mls/hr Potassium Chloride (Klor-Con M20) 40 meq PO ONETIME ONE Stop: 10/25/19 09:01 Last Admin: 10/25/19 10:25 Dose: 40 meq Potassium Chloride (Klor-Con M20) 40 meq PO ONETIME ONE Stop: 10/25/19 17:42 - Exam Quality Assessment: Reports: DVT Prophylaxis General: Reports: Alert, Cooperative, No Acute Distress. Denies: Oriented Lungs: Reports: Clear to Auscultation, Normal Respiratory Effort Cardiovascular: Reports: Regular Rate, Regular Rhythm, No Murmurs GI/Abdominal Exam: Soft, Non-Tender, No Organomegaly, No Distention Extremities: Non-Tender, No Pedal Edema *Q Meaningful Use (DIS) - VTE *Q VTE Pharmacological Contraindications *Q: Not Candidate LT Anticoag
[2019-10-25] MEDS: Melatonin 3 MG Tab PO SCH (20:23)
[2019-10-26 08:53] VITALS: BP 139/60; PULSE 76
[2019-10-26] MEDS ORDERED: DULoxetine 30 MG Cap PO SCH (09:00)
== END 2019-10-26 10:16 | disposition home or self-care (01) | DRG 282 ==
LOC: JP.ED 17:25 → JP.MS 20:28
PROVIDERS: ADMIT Hospitalist; ATTEND Hospitalist
PROC: 0T9B70Z Drainage of Bladder with Drainage Device, Via Natural or Artificial Opening (ICD-10-PCS; principal; 2019-10-26)
DX: I21.4 Non-ST elevation (NSTEMI) myocardial infarction (principal); H40.9 Unspecified glaucoma; I95.1 Orthostatic hypotension; G30.9 Alzheimer's disease, unspecified; F02.80 Dementia in other diseases classified elsewhere, unspecified severity, without behavioral disturbance, psychotic disturbance, mood disturbance, and anxiety; Z51.5 Encounter for palliative care; F03.90 Unspecified dementia, unspecified severity, without behavioral disturbance, psychotic disturbance, mood disturbance, and anxiety; Z66 Do not resuscitate; R33.9 Retention of urine, unspecified; T43.215A Adverse effect of selective serotonin and norepinephrine reuptake inhibitors, initial encounter; I25.10 Atherosclerotic heart disease of native coronary artery without angina pectoris; E78.00 Pure hypercholesterolemia, unspecified; K21.9 Gastro-esophageal reflux disease without esophagitis; G62.9 Polyneuropathy, unspecified; H91.90 Unspecified hearing loss, unspecified ear; Z79.899 Other long term (current) drug therapy; I25.2 Old myocardial infarction; Z98.49 Cataract extraction status, unspecified eye; Z88.8 Allergy status to other drugs, medicaments and biological substances
CPT/HCPCS: 36415; 51701; 51798; 70450; 71046; 80048; 80053; 81001; 83605; 83735; 83880; 84132; 84484; 85025; 85027; 85610; 85730; 93005; 93010; 99284; 99285-25; A9270-GY; J1644; J7030

== ENCOUNTER 2020-01-01 13:09 | Emergency (ER) | payer MEDICARE ==
[2020-01-01 13:32] VITALS: BP 142/65; PULSE 74
--- NOTE | 2020-01-01 14:18 | EDM.PDOC ---
ED HPI GENERAL MEDICAL PROBLEM - General Chief Complaint: Genitourinary Problem Stated Complaint: NO URINATION FOR 4 DAYS Time Seen by Provider: 01/01/20 14:00 Source of Information: Reports: Patient, Family History Limitations: Reports: No Limitations - History of Present Illness INITIAL COMMENTS - FREE TEXT/NARRATIVE: 84-year-old female detention patient, in the memory care unit was recently in the hospital treated for a UTI. She is been back and doing better and had some medication adjustments, the concern is the nursing staff felt she has not passed any urine in the last 4 days. She is taking oral food, is not running a fever, and not having any specific complaints but her mood has been somber the last few days. Also some concerns about increased lower extremity edema. Onset: Unknown/Unsure (Apparently has not urinated in 4 days) Associated Symptoms: Reports: Confusion (Chronic and stable), Other (Seems more depressed over the last several days). Denies: Fever/Chills, Headaches - Related Data Allergies Allergy/AdvReac Type Severity Reaction Status Date / Time propoxyphene Allergy Mild Rash Verified 01/01/20 14:12 Home Meds: Home Meds Gabapentin [Neurontin] 300 mg PO DAILY 06/03/17 [History] Timolol Maleate/PF [Timoptic 0.25% Ocudose Drop] 1 drop EYEBOTH DAILY 06/03/17 [ History] Cholecalciferol (Vitamin D3) [Vitamin D3] 2,000 unit PO DAILY 07/28/17 [History] Acetaminophen 650 mg PO Q4HR PRN 10/24/19 [History] Latanoprost/Pf [Latanoprost 0.005% Eye Drop] 1 drop EYEBOTH BEDTIME 10/24/19 [ History] Melatonin 9 mg PO BEDTIME 10/24/19 [History] Memantine HCl [Namenda Xr] 28 mg PO DAILY 10/24/19 [History] DULoxetine [Cymbalta] 30 mg PO DAILY #30 cap 10/25/19 [Rx] busPIRone [Buspar] 0.5 tab PO BID 01/01/20 [History] Past Medical History - Past Health History Medical/Surgical History: Denies Medical/Surgical History HEENT History: Reports: Cataract, Glaucoma, Hard of Hearing, Retinal Detachment Cardiovascular History: Reports: CAD, High Cholesterol, [place] Gastrointestinal History: Reports: [employer] History: Reports: Neurological History: Reports: Neuropathy, Peripheral, Other (See Below) Other Neuro History: dementia, alzheimers, syncope Psychiatric History: Reports: Alzheimers Disease, Dementia Endocrine/Metabolic History: Reports: Vitamin D Deficiency - Infectious Disease History Infectious Disease History: Reports: Chicken Pox, Measles, Mumps - Past Surgical History HEENT Surgical History: Reports: Cataract Surgery Cardiovascular Surgical History: Reports: Other (See Below) Other Cardiovascular Surgeries/Procedures: angiogram Social & Family History - Family History Family Medical History: Noncontributory Neurological: Reports: Alzheimers Disease - Tobacco Use Smoking Status *Q: Never Smoker - Caffeine Use Caffeine Use: Reports: Coffee Other Caffeine Use: 1 cup a day ED ROS GENERAL - Review of Systems Review Of Systems: See Below Constitutional: Denies: Fever, Chills, Malaise Respiratory: Denies: Shortness of Breath Cardiovascular: Denies: Chest Pain GI/Abdominal: Denies: Abdominal Pain, Nausea, Vomiting : Reports: Other (Decreased urine production) Skin: Reports: No Symptoms Neurological: Reports: Confusion Psychiatric: Reports: Depression ED EXAM, GENERAL - Physical Exam Exam: See Below Exam Limited By: No Limitations General Appearance: Alert, No Apparent Distress, Other (Patient responds to questions, smiling, no distress) Eye Exam: Bilateral Eye: EOMI, Other (Well-hydrated) Head: Atraumatic Respiratory/Chest: No Respiratory Distress, Lungs Clear Cardiovascular: Regular Rate, Rhythm GI/Abdominal: Soft, Non-Tender Extremities: Pedal Edema (Just 1+ pedal edema at the ankles and lower shins, symmetric) Neurological: Alert, Confused Skin Exam: Warm, Dry Course - Vital Signs Last Recorded V/S: Last Vital Signs Temp 97.1 F 01/01/20 13:56 Pulse 74 01/01/20 13:56 Resp 16 01/01/20 13:56 BP 142/65 H 01/01/20 13:56 Pulse Ox 98 01/01/20 13:56 - Orders/Labs/Meds Labs: Laboratory Tests 01/01/20 01/01/20 01/01/20 Range/Units 14:11 14:31 14:31 WBC 6.5 (4.5-11.0) K/uL RBC 3.98 (3.30-5.50) M/uL Hgb 11.8 L (12.0-15.0) g/dL Hct 38.6 (36.0-48.0) % MCV 97 (80-98) fL MCH 30 (27-31) pg MCHC 31 L (32-36) % Plt Count 195 (150-400) K/uL Neut % (Auto) 39 (36-66) % Lymph % (Auto) 44 (24-44) % [place] % (Auto) 14 H (2-6) % Eos % (Auto) 2 (2-4) % Baso % (Auto) 1 (0-1) % Sodium 145 (140-148) mmol/L Potassium 4.5 (3.6-5.2) mmol/L Chloride 107 (100-108) mmol/L Carbon Dioxide 33 H (21-32) mmol/L Anion Gap 9.5 (5.0-14.0) mmol/L BUN 39 H D (7-18) mg/dL Creatinine 0.7 (0.6-1.0) mg/dL Est Cr Clr Drug Dosing 52.58 mL/min Estimated GFR (MDRD) > 60 (>60) Glucose 100 (74-106) mg/dL Calcium 8.5 (8.5-10.1) mg/dL Urine Color Yellow (YELLOW) Urine Appearance Slightly cloudy A (CLEAR) Urine pH 6.5 (5.0-8.0) Ur Specific [place] 1.025 (1.008-1.030) Urine Protein Negative (NEGATIVE) mg/dL Urine Glucose (UA) Negative (NEGATIVE) mg/dL Urine Ketones Negative (NEGATIVE) mg/dL Urine Occult Blood Negative (NEGATIVE) Urine Nitrite Negative (NEGATIVE) Urine Bilirubin Negative (NEGATIVE) Urine Urobilinogen 1.0 (0.2-1.0) EU/dL Ur Leukocyte Esterase Negative (NEGATIVE) Urine RBC Not seen (0-5) Urine WBC 0-5 (0-5) Ur Epithelial Cells Few Amorphous Sediment Not seen Urine Bacteria Moderate Urine Mucus Few - Re-Assessments/Exams Free Text/Narrative Re-Assessment/Exam: 01/01/20 14:19 Bladder scan was obtained when the patient arrived and it showed 700+ cc of urine. A catheter was placed without difficulty and a clear luis alfredo fairly dark- colored urine was released and a UA ordered. We also checked a CBC and BMP. 01/01/20 15:01 UA is now clear, creatinine and GFR are normal. Electrolytes are reassuring. I do not think we need to keep the Santos in place, they can consult with her primary provider over the next 48 hours to discuss medications if this becomes a recurring problem. Departure - Departure Time of Disposition: 15:56 Disposition: DC/Tfer to Director Channel [facility] 64 Clinical Impression: Urine retention, Peripheral edema Alzheimer's dementia Qualifiers: Alzheimer's disease onset: late-onset Dementia behavioral disturbance: without behavioral disturbance Qualified Code(s): G30.1 - Alzheimer's disease with late onset; F02.80 - Dementia in other diseases classified elsewhere without behavioral disturbance - Discharge Information Instructions: Acute Urinary Retention, Female, [id number] Referrals: Prince Masterson NP [Primary Care Provider] - Forms: ED Department Discharge Care Plan Goals: No change in medications at this time, discussed with her primary provider in the next 48 hours any possible medication changes if symptoms are recurring. Avoid extra sodium intake and wear compression stockings faithfully. Encourage patient to pass urine on her own if concerns of retention recurring, this is not a kidney failure issue but a bladder issue. Sepsis Event Note - Evaluation Sepsis Screening Result: No Definite Risk - Focused Exam Vital Signs: Vital Signs Temp Pulse Resp BP Pulse Ox 01/01/20 13:56 97.1 F 74 16 142/65 H 98 01/01/20 13:28 97.1 F 74 16 142/65 H 98 Date Exam was Performed: 01/01/20 Time Exam was Performed: 16:21
== END 2020-01-01 15:36 ==
LOC: JP.ED 13:09
DX: R33.9 Retention of urine, unspecified (principal); R60.0 Localized edema; G30.1 Alzheimer's disease with late onset; F02.80 Dementia in other diseases classified elsewhere, unspecified severity, without behavioral disturbance, psychotic disturbance, mood disturbance, and anxiety; I25.10 Atherosclerotic heart disease of native coronary artery without angina pectoris; K21.9 Gastro-esophageal reflux disease without esophagitis; I25.2 Old myocardial infarction; G62.9 Polyneuropathy, unspecified; Z79.899 Other long term (current) drug therapy
CPT/HCPCS: 36415; 51702; 51798; 80048; 81001; 85025; 99283; 99284-25

== ENCOUNTER 2020-02-13 19:51 | Emergency (ER) | payer MEDICARE ==
[2020-02-13 21:25] VITALS: BP 124/45; PULSE 77
--- NOTE | 2020-02-13 21:56 | EDM.PDOC ---
ED HPI GENERAL MEDICAL PROBLEM - General Chief Complaint: Behavioral/Psych Stated Complaint: MEDICAL Time Seen by Provider: 02/13/20 20:30 Source of Information: Reports: Patient, Family History Limitations: Reports: Other - History of Present Illness INITIAL COMMENTS - FREE TEXT/NARRATIVE: This is an 84 yo who presents with concerns of dyspnea. History is limited by dementia. She was reportedly at her NH today when acutely become panicky and short of breath. EMS arrived and she had normal vitals. 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 Staff [facility] the [facility] preferred that she be brought in for evaluation. She currently denies any symptoms. No cough. No fevers. No CP. No abdominal discomfort. She does have a history of anxiety. - Related Data Allergies Allergy/AdvReac Type Severity Reaction Status Date / Time propoxyphene Allergy Mild Rash Verified 02/13/20 19:58 Home Meds: Home Meds Timolol Maleate/PF [Timoptic 0.25% Ocudose Drop] 1 drop EYEBOTH DAILY 06/03/17 [ History] Cholecalciferol (Vitamin D3) [Vitamin D3] 2,000 unit PO DAILY 07/28/17 [History] Acetaminophen 650 mg PO Q4HR PRN 10/24/19 [History] Latanoprost/Pf [Latanoprost 0.005% Eye Drop] 1 drop EYEBOTH BEDTIME 10/24/19 [ History] Melatonin 9 mg PO BEDTIME 10/24/19 [History] Memantine HCl [Namenda Xr] 28 mg PO DAILY 10/24/19 [History] busPIRone [Buspar] 0.5 tab PO BID 01/01/20 [History] Divalproex Sodium 250 mg PO TID 02/13/20 [History] Furosemide 20 mg PO ASDIRECTED 02/13/20 [History] Furosemide 40 mg PO ASDIRECTED 02/13/20 [History] Past Medical History - Past Health History Medical/Surgical History: Denies Medical/Surgical History HEENT History: Reports: Cataract, Glaucoma, Hard of Hearing, Retinal Detachment Cardiovascular History: Reports: CAD, High Cholesterol, [place] Gastrointestinal History: Reports: 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: Neurological History: Reports: Neuropathy, Peripheral, Other (See Below) Other Neuro History: dementia, alzheimers, syncope Psychiatric History: Reports: Alzheimers Disease, Dementia Endocrine/Metabolic History: Reports: Vitamin D Deficiency - Infectious Disease History Infectious Disease History: Reports: Chicken Pox, Measles, Mumps - Past Surgical History HEENT Surgical History: Reports: Cataract Surgery Cardiovascular Surgical History: Reports: Other (See Below) Other Cardiovascular Surgeries/Procedures: angiogram Social & Family History - Family History Family Medical History: Noncontributory Neurological: Reports: Alzheimers Disease - Tobacco Use Smoking Status *Q: Unknown Ever Smoked - Caffeine Use Caffeine Use: Reports: Coffee Other Caffeine Use: 1 cup a day ED ROS GENERAL - Review of Systems Review Of Systems: See Below Constitutional: Reports: No Symptoms HEENT: Reports: No Symptoms Respiratory: Reports: No Symptoms Cardiovascular: Reports: No Symptoms Endocrine: Reports: No Symptoms GI/Abdominal: Reports: No Symptoms : Reports: No Symptoms Musculoskeletal: Reports: No Symptoms Skin: Reports: No Symptoms Neurological: Reports: No Symptoms Psychiatric: Reports: No Symptoms Hematologic/Lymphatic: Reports: No Symptoms Immunologic: Reports: No Symptoms ED EXAM, NEURO - Physical Exam Exam: See Below Exam Limited By: No Limitations General Appearance: Alert, No Apparent Distress Ears: Normal External Exam Nose: Normal Inspection Throat/Mouth: Normal Inspection Head Exam: Atraumatic, Normocephalic Neck: Normal Inspection Respiratory/Chest: Lungs Clear Cardiovascular: Regular Rate, Rhythm GI/Abdominal: Soft, Non-Tender Neurological: Alert, Normal Mood/Affect Back Exam: Normal Inspection Extremities: Normal Inspection Psychiatric: Normal Affect Skin Exam: Warm, Dry Course - Vital Signs Last Recorded V/S: Last Vital Signs Temp 36.7 C 02/13/20 20:15 Pulse 77 02/13/20 21:24 Resp 16 02/13/20 20:30 BP 124/45 L 02/13/20 21:24 Pulse Ox 99 02/13/20 21:24 - Orders/Labs/Meds Orders: Active Orders 24 hr Category Date Time Status EKG Documentation Completion [RC] ASDIRECTED Care 02/13/20 20:52 Active CXR [Chest 2V] [CR] Stat Exams 02/13/20 20:52 Taken EKG 12 Lead [EK] Routine Ther 02/13/20 20:52 Ordered - Re-Assessments/Exams Free Text/Narrative Re-Assessment/Exam: 84 with history of dementia and anxiety presents with concerns of transient anxiety and dyspnea. Normal vitals and exam here. Feels well. Does not recall events leading to ED presentation. Impression of EMS that this was panic attack as they were able to talk down out of symptoms. Staff at [facility] preferred ED eval. Screening EKG, CXR unremarkable. Remained stable during period of observation on the monitor. Safe for discharge, suspect likely element of panic/anxiety. 02/13/20 22:41 Departure - Departure Time of Disposition: 21:50 Disposition: Home, Self-Care 01 Clinical Impression: Shortness of breath - Discharge Information Instructions: Shortness of Breath, Adult Referrals: PCP,None [Primary Care Provider] - Forms: ED Department Discharge Additional Instructions: Your work up in the ED was unremarkable Please see a doctor if your symptoms return and persist. We suggest attempts at calming/relaxation prior to this. Sepsis Event Note - Evaluation Sepsis Screening Result: No Definite Risk - Focused Exam Vital Signs: Vital Signs Temp Pulse Resp BP Pulse Ox 02/13/20 21:24 77 124/45 L 99 02/13/20 20:30 75 16 115/46 L 98 02/13/20 20:15 36.7 C 84 24 H 125/55 L 100 Date Exam was Performed: 02/13/20 Time Exam was Performed: 22:30 - My Orders Last 24 Hours: My Active Orders 02/13/20 20:52 EKG Documentation Completion [RC] ASDIRECTED CXR [Chest 2V] [CR] Stat EKG 12 Lead [EK] Routine - Assessment/Plan Last 24 Hours: My Active Orders 02/13/20 20:52 EKG Documentation Completion [RC] ASDIRECTED CXR [Chest 2V] [CR] Stat EKG 12 Lead [EK] Routine
--- NOTE | 2020-02-14 09:40 | CR ---
CHEST: 2 view CLINICAL HISTORY:Dyspnea COMPARISON:October 19, 2019 FINDINGS: The heart size, pulmonary vascularity and hilar structures are normal. No infiltrate effusion or pneumothorax is seen. Lungs are hyperaerated. There are atherosclerotic changes in the aorta. There is some scarring and fibrosis in the left lower lobe. IMPRESSION: No acute cardiopulmonary process. Underlying COPD
== END 2020-02-13 22:24 | disposition home or self-care (01) ==
LOC: JP.ED 19:51
DX: R06.02 Shortness of breath (principal); I25.10 Atherosclerotic heart disease of native coronary artery without angina pectoris; I25.2 Old myocardial infarction; G30.9 Alzheimer's disease, unspecified; F02.80 Dementia in other diseases classified elsewhere, unspecified severity, without behavioral disturbance, psychotic disturbance, mood disturbance, and anxiety; Z98.49 Cataract extraction status, unspecified eye; Z88.8 Allergy status to other drugs, medicaments and biological substances
CPT/HCPCS: 71046; 71046-26; 93005; 93010; 99285-25

== ENCOUNTER 2021-06-30 19:46 | Emergency (ER) | payer MEDICARE, OTHER ==
--- NOTE | 2021-06-30 20:02 | EDM.PDOC ---
ED HPI GENERAL MEDICAL PROBLEM - General Chief Complaint: Neurological Problem Stated Complaint: SEIZURE VIA [facility] Time Seen by Provider: 06/30/21 19:53 Source of Information: Reports: EMS History Limitations: Reports: Other (The patient has Alzheimer's dementia) - History of Present Illness INITIAL COMMENTS - FREE TEXT/NARRATIVE: Selina is an 85-year-old female from [facility] who presents via [facility] for evaluation of a witnessed seizure. Staff states that the patient who is wheelchair-bound was slumped over in her chair and they witnessed tonic-clonic seizure activity lasting approximately 20 seconds followed by a relatively brief post ictal period. The patient has been this and had emesis x[facility] ([facility] the [facility] and 2 in the ambulance). She is really not able to elaborate any details because of her fairly advanced dementia, however, she does not have a previous history of seizures. shelter staff and EMS report that she is back at her baseline for mentation on arrival to the ED. - Related Data Allergies Allergy/AdvReac Type Severity Reaction Status Date / Time propoxyphene Allergy Mild Rash Verified 02/13/20 19:58 Home Meds: Home Meds Acetaminophen 650 mg PO Q4HR PRN 10/24/19 [History] Alum Hydrox/Mag Hydrox/Simeth [Maalox Advanced] 30 ml PO Q4H PRN 06/30/21 [History] Atropine 1% [Atropine 1% Ophth Soln] 2 - 4 drop OP ASDIRECTED PRN 06/30/21 [History] Bacitracin [Bacitracin Oint 1 GM] 1 dose .XX ASDIRECTED PRN 06/30/21 [History] HYDROmorphone [Dilaudid 1 MG/ML Soln] 1 mg PO Q4H PRN 06/30/21 [History] LORazepam [Ativan ORAL Concentrate 1MG/0.5 ML U/D] 0.5 ml PO Q4H PRN 06/30/21 [History] LORazepam [Ativan] 0.5 mg PO BID PRN 06/30/21 [History] Magnesium Hydroxide [Milk of Magnesia] 400 mg PO BEDTIME PRN 06/30/21 [History] Prochlorperazine [Compazine] 25 mg RC ASDIRECTED PRN 06/30/21 [History] bisacodyL [Dulcolax] 10 mg RC DAILY 06/30/21 [History] cephALEXin [Cephalexin] 250 mg PO BID #13 capsule 06/30/21 [Rx] diphenhydrAMINE [Benadryl] 12.5 mg PO ASDIRECTED PRN 06/30/21 [History] Past Medical History - Past Health History Medical/Surgical History: Denies Medical/Surgical History HEENT History: Reports: Cataract, Glaucoma, Hard of Hearing, Retinal Detachment Cardiovascular History: Reports: CAD, High Cholesterol, [place] Gastrointestinal History: Reports: 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: Neurological History: Reports: Neuropathy, Peripheral, Other (See Below) Other Neuro History: dementia, alzheimers, syncope Psychiatric History: Reports: Alzheimers Disease, Dementia Endocrine/Metabolic History: Reports: Vitamin D Deficiency - Infectious Disease History Infectious Disease History: Reports: Chicken Pox, Measles, Mumps - Past Surgical History HEENT Surgical History: Reports: Cataract Surgery Cardiovascular Surgical History: Reports: Other (See Below) Other Cardiovascular Surgeries/Procedures: angiogram Social & Family History - Family History Family Medical History: No Pertinent Family History Neurological: Reports: Alzheimers Disease - Caffeine Use Caffeine Use: Reports: Coffee Other Caffeine Use: 1 cup a day ED ROS GENERAL - Review of Systems Review Of Systems: Unable To Obtain Reason Not Obtained: Patient has Alzheimer's dementia, not able to answer questions GI/Abdominal: Reports: Vomiting Neurological: Reports: Seizure, Other (Advanced Alzheimer's dementia) - Physical Exam Exam: See Below Exam Limited By: No Limitations General Appearance: Alert, No Apparent Distress, Anxious Eye Exam: Bilateral Eye: EOMI, PERRL Throat/Mouth: Normal Inspection, Normal Lips, Normal Oropharynx, No Airway Compromise. No: Evidence of Tongue Biting Head Exam: Atraumatic, Normocephalic Neck: Normal Inspection Respiratory/Chest: No Respiratory Distress, Lungs Clear Cardiovascular: Normal Peripheral Pulses, Regular Rate, Rhythm, No Murmur GI/Abdominal: Normal Bowel Sounds, Soft, Non-Tender Neuro Exam (Abbreviated): Alert, CN II-XII Intact, No Motor/Sensory Deficits, Other (Patient is at her baseline for cognition) Extremities: Normal Inspection, No Pedal Edema, Normal Capillary Refill Psychiatric: Normal Affect, Normal Mood Skin Exam: Warm, Dry #1 Interpretation EKG Date: 06/30/21 Time: 20:03 Rhythm: NSR (Ectopic atrial rhythm) Rate (Beats/Min): 83 [place]: Normal P-Wave: Present (Inverted P wave suggesting ectopic atrial rhythm) QRS: Normal ST-T: Normal QT: Normal Comparison: No Change (No significant change when compared to EKG on 01/19/2020) Course - Vital Signs Last Recorded V/S: Last Vital Signs Temp 36.4 C 06/30/21 20:23 Pulse 82 06/30/21 20:23 Resp 16 06/30/21 20:23 BP 96/53 L 06/30/21 20:23 Pulse Ox 95 06/30/21 20:23 - Orders/Labs/Meds Orders: Active Orders 24 hr Category Date Time Status EKG Documentation Completion [RC] ASDIRECTED Care 06/30/21 19:55 Active EKG 12 Lead [EK] Routine Ther 06/30/21 19:54 Ordered Labs: Laboratory Tests 06/30/21 06/30/21 06/30/21 Range/Units 20:07 20:07 20:07 WBC 9.2 (4.5-11.0) K/uL RBC 4.06 (3.30-5.50) M/uL Hgb 12.6 (12.0-15.0) g/dL Hct 39.5 (36.0-48.0) % MCV 97 (80-98) fL MCH 31 (27-31) pg MCHC 32 (32-36) % Plt Count 310 (150-400) K/uL Neut % (Auto) 43.0 (36-66) % Lymph % (Auto) 39.3 (24-44) % [place] % (Auto) 13.0 H (2-6) % Eos % (Auto) 3.9 (2-4) % Baso % (Auto) 0.8 (0-1) % PT 10.6 (9.5-12.0) sec INR 0.97 (0.80-1.20) APTT 22.8 L (27.0-36.0) sec Sodium 142 (140-148) mmol/L Potassium 3.9 (3.6-5.2) mmol/L Chloride 105 (100-108) mmol/L Carbon Dioxide 28 (21-32) mmol/L Anion Gap 8.9 (5.0-14.0) mmol/L BUN 23 H (7-18) mg/dL Creatinine 1.0 (0.6-1.0) mg/dL Est Cr Clr Drug Dosing TNP Estimated GFR (MDRD) 53 L (>60) Glucose 93 (74-106) mg/dL Calcium 8.7 (8.5-10.1) mg/dL Total Bilirubin 0.2 (0.2-1.0) mg/dL AST 19 (15-37) U/L ALT 21 (12-78) U/L Alkaline Phosphatase 59 (46-116) U/L Total Protein 6.4 (6.4-8.2) g/dL Albumin 3.1 L (3.4-5.0) g/dL Globulin 3.3 (2.3-3.5) g/dL Albumin/Globulin Ratio 0.9 L (1.2-2.2) Urine Color (YELLOW) Urine Appearance (CLEAR) Urine pH (5.0-8.0) Ur Specific [place] (1.008-1.030) Urine Protein (NEGATIVE) mg/dL Urine Glucose (UA) (NEGATIVE) mg/dL Urine Ketones (NEGATIVE) mg/dL Urine Occult Blood (NEGATIVE) Urine Nitrite (NEGATIVE) Urine Bilirubin (NEGATIVE) Urine Urobilinogen (0.2-1.0) EU/dL Ur Leukocyte Esterase (NEGATIVE) Urine RBC (0-5) Urine WBC (0-5) Ur Epithelial Cells Amorphous Sediment Urine Bacteria Urine Mucus 06/30/21 Range/Units 20:15 WBC (4.5-11.0) K/uL RBC (3.30-5.50) M/uL Hgb (12.0-15.0) g/dL Hct (36.0-48.0) % MCV (80-98) fL MCH (27-31) pg MCHC (32-36) % Plt Count (150-400) K/uL Neut % (Auto) (36-66) % Lymph % (Auto) (24-44) % [place] % (Auto) (2-6) % Eos % (Auto) (2-4) % Baso % (Auto) (0-1) % PT (9.5-12.0) sec INR (0.80-1.20) APTT (27.0-36.0) sec Sodium (140-148) mmol/L Potassium (3.6-5.2) mmol/L Chloride (100-108) mmol/L Carbon Dioxide (21-32) mmol/L Anion Gap (5.0-14.0) mmol/L BUN (7-18) mg/dL Creatinine (0.6-1.0) mg/dL Est Cr Clr Drug Dosing Estimated GFR (MDRD) (>60) Glucose (74-106) mg/dL Calcium (8.5-10.1) mg/dL Total Bilirubin (0.2-1.0) mg/dL AST (15-37) U/L ALT (12-78) U/L Alkaline Phosphatase (46-116) U/L Total Protein (6.4-8.2) g/dL Albumin (3.4-5.0) g/dL Globulin (2.3-3.5) g/dL Albumin/Globulin Ratio (1.2-2.2) Urine Color Yellow (YELLOW) Urine Appearance Turbid A (CLEAR) Urine pH 5.5 (5.0-8.0) Ur Specific [place] 1.025 (1.008-1.030) Urine Protein 30 H (NEGATIVE) mg/dL Urine Glucose (UA) Negative (NEGATIVE) mg/dL Urine Ketones 15 H (NEGATIVE) mg/dL Urine Occult Blood Small H (NEGATIVE) Urine Nitrite Negative (NEGATIVE) Urine Bilirubin Negative (NEGATIVE) Urine Urobilinogen 0.2 (0.2-1.0) EU/dL Ur Leukocyte Esterase Large H (NEGATIVE) Urine RBC 5-10 H (0-5) Urine WBC Packed H (0-5) Ur Epithelial Cells Few Amorphous Sediment Many Urine Bacteria Many Urine Mucus Moderate Meds: Medications Discontinued Medications Generic Name Dose Route Start Last Admin Trade Name Freq PRN Reason Stop Dose Admin Cephalexin 250 mg 06/30/21 21:24 Cephalexin 250 Mg Cap PO 06/30/21 21:25 ONETIME ONE - Radiology Interpretation Free Text/Narrative:: I reviewed the patient's labs showing a normal CBC, normal comprehensive metabo lic panel, normal PT and PTT. Urinalysis is significant for pyuria with packed WBCs per high field view and positive leukocyte esterase. Patient also underwent a CT of the head without contrast showing generous generalized cerebral atrophy. There is no acute bleed, midline shift, or mass. Based on the patient's presenting symptoms, she has significant pyuria which likely was the nidus for her seizure activity. We will start her on cephalexin 250 mg twice daily. I will do a urine culture on her as well. At this time she is suitable for discharge back to [facility] for her [facility] care. Departure - Departure Time of Disposition: 21:27 Disposition: DC/Tfer to [facility] Clinical Impression: Seizure, Complicated UTI (urinary tract infection), Alzheimer's dementia, Palliative care status - Discharge Information Prescriptions: cephALEXin [Cephalexin] 250 mg PO BID #13 capsule Instructions: Urinary Tract Infection, Adult, Seizure, Adult Referrals: Prince Masterson NP [Primary Care Provider] - Forms: ED Department Discharge Care Plan Goals: You were found to have a urinary tract infection that likely caused your seizure today. We will start you on an antibiotic called cephalexan that you will need to take twice daily for 7 days. Sepsis Event Note (ED) - Focused Exam Vital Signs: Vital Signs Temp Pulse Resp BP Pulse Ox 06/30/21 20:23 36.4 C 82 16 96/53 L 95 - Problem List & Annotations (1) Alzheimer's dementia SNOMED Code(s): 87016416 Code(s): G30.9 - ALZHEIMER'S DISEASE, UNSPECIFIED; F02.80 - DEMENTIA IN OTH DISEASES CLASSD ELSWHR W/O BEHAVRL DISTURB Status: Chronic Priority: Medium Current Visit: Yes (2) Complicated UTI (urinary tract infection) SNOMED Code(s): 14158265 Code(s): N39.0 - URINARY TRACT INFECTION, SITE NOT SPECIFIED Status: Acute Priority: Medium Current Visit: Yes (3) Seizure SNOMED Code(s): 99391084 Code(s): R56.9 - UNSPECIFIED CONVULSIONS Status: Acute Priority: Medium Current Visit: Yes - Problem List Review Problem List Initiated/Reviewed/Updated: Yes - My Orders Last 24 Hours: My Active Orders 06/30/21 19:54 EKG 12 Lead [EK] Routine 06/30/21 19:55 EKG Documentation Completion [RC] ASDIRECTED - Assessment/Plan Last 24 Hours: My Active Orders 06/30/21 19:54 EKG 12 Lead [EK] Routine 06/30/21 19:55 EKG Documentation Completion [RC] ASDIRECTED
--- NOTE | 2021-06-30 21:21 | CRLCT ---
For Patients: As a result of the Century Cures Act, medical imaging exams and procedure reports are released immediately into your electronic medical record. You may view this report before your referring provider. If you have questions, please contact your health care provider. INDICATION: Seizure, dementia TECHNIQUE: Head CT without contrast. COMPARISON: October 24, 2019 FINDINGS: CSF spaces: Diffuse cerebral atrophy. Brain parenchyma: There are nonspecific low attenuation white matter changes consistent with chronic microvascular disease. No sign of mass, hemorrhage, or midline shift. Skull base and calvarium: The visualized paranasal sinuses and mastoid air cells demonstrate no acute or significant findings. The visualized orbits are grossly unremarkable. No skull fractures. There is intracranial atherosclerosis. IMPRESSION: 1. No acute findings. 2. Diffuse cerebral atrophy. Please note that all CT scans at this facility use dose modulation, iterative reconstruction, and/or weight-based dosing when appropriate to reduce radiation dose to as low as reasonably achievable. Dictated by Susan Christianson MD @ 06/30/2021 9:20:[address] Susan Christianson @ Jun 30 2021 9:20PM
[2021-06-30] MEDS ORDERED: Cephalexin 250 MG Cap PO ONE (21:24)
[2021-06-30 21:39] VITALS: BP 117/57; PULSE 85
== END 2021-06-30 21:58 ==
LOC: JP.ED 19:46
DX: R56.9 Unspecified convulsions (principal); G30.9 Alzheimer's disease, unspecified; F02.80 Dementia in other diseases classified elsewhere, unspecified severity, without behavioral disturbance, psychotic disturbance, mood disturbance, and anxiety; N39.0 Urinary tract infection, site not specified; I25.10 Atherosclerotic heart disease of native coronary artery without angina pectoris; I25.2 Old myocardial infarction; Z51.5 Encounter for palliative care; Z88.8 Allergy status to other drugs, medicaments and biological substances; Z79.899 Other long term (current) drug therapy
CPT/HCPCS: 36415; 70450; 80053; 81001; 85025; 85610; 85730; 93005; 99285; A9270

== ENCOUNTER 2024-12-11 19:24 | Inpatient (IN) | payer MEDICAID, MEDICARE ==
[2024-12-11 19:56] LABS: BASOPHILS ABSOLUTE AUTO 0.07 K/uL (0.00-0.10); BASOPHILS PERCENT AUTO 0.9 % (0.1-1.3); EOSINOPHILS ABSOLUTE AUTO 0.25 K/uL (0.00-0.40); EOSINOPHILS PERCENT AUTO 3.1 % (0.0-5.4); HEMATOCRIT 38.7 % (34.3-46.0); HEMOGLOBIN 12.9 g/dL (11.2-15.5); IMMATURE GRAN PERCENT AUTO 0.2 % (0.0-0.7); LYMPHOCYTES ABSOLUTE AUTO 2.35 K/uL (0.8-3.3); LYMPHOCYTES PERCENT AUTO 29.2 % (11.4-47.7); MEAN CORPUSCULAR HEMOGLOBIN 31.8 pg (31.6-35.5); MEAN CORPUSCULAR HGB CONC 33.3 g/dL (31.6-35.5); MEAN CORPUSCULAR VOLUME 95.3 fL (81.4-99.0); MONOCYTES ABSOLUTE AUTO 0.44 K/uL (0.20-0.90); MONOCYTES PERCENT AUTO 5.5 % (3.3-12.6); NEUTROPHILS ABSOLUTE AUTO 4.91 K/uL (1.0-7.6); NEUTROPHILS PERCENT AUTO 61.1 % (40.0-78.1); PLATELET COUNT,PLT 266 K/uL (130-375); RED BLOOD CELL COUNT 4.06 M/uL (3.77-5.24)
[2024-12-11 19:58] LABS: IMMATURE GRAN ABSOLUTE AUTO 0.02 K/uL (0.00-0.23)
[2024-12-11 20:18] LABS: A/G RATIO 0.9 (1.2-2.2); ALANINE AMINOTRANSFERASE,ALT 16 U/L (12-78); ALBUMIN 3.3 g/dL (3.4-5.0); ALKALINE PHOSPHATASE 74 U/L (46-116); ASPARTATE AMNIOTRANSFERASE,AST 18 U/L (15-37); BILIRUBIN TOTAL 0.3 mg/dL (0.2-1.0); BLOOD UREA NITROGEN,BUN 29 mg/dL (7-18); CALCIUM 8.6 mg/dL (8.5-10.1); CARBON DIOXIDE,CO2 27 mmol/L (21-32); CHLORIDE,CL 105 mmol/L (100-108); CREATININE 0.8 mg/dL (0.6-1.0); EST CRCL DRUG DOSING (CG) 47.27 mL/min; ESTIMATED GFR 71 mL/min (>60); GLUCOSE RANDOM 153 mg/dL (74-106); POTASSIUM,K 3.7 mmol/L (3.6-5.2); PROTEIN TOTAL,TP 6.8 g/dL (6.4-8.2); SODIUM,NA 142 mmol/L (140-148)
[2024-12-11] MEDS: Sodium Chloride 0.9% 1,000 ML IV SCH ×2 (20:40→23:07)
[2024-12-11 20:55] LABS: APPEARANCE,URINE TURBID (CLEAR); BILIRUBIN,URINE NEGATIVE (NEGATIVE); COLOR,URINE YELLOW (YELLOW); GLUCOSE,URINE NEGATIVE (NEGATIVE); KETONES,URINE NEGATIVE (NEGATIVE); LEUKOCYTE ESTERASE,URINE SMALL (NEGATIVE); NITRITE,URINE POSITIVE (NEGATIVE); OCCULT BLOOD,URINE TRACE-INTACT (NEGATIVE); PH,URINE 5.5 (5.0-8.0); PROTEIN,URINE 30 mg/dL (NEGATIVE); UROBILINOGEN,URINE 0.2 EU/dL (0.2-1.0)
[2024-12-11 21:03] LABS: AMORPHOUS SEDIMENT,URINE NOT SEEN; BACTERIA,URINE MANY; EPITHELIAL CELLS,URINE FEW; MUCUS,URINE MODERATE; RBC,URINE 0-5 (0-5); WBC,URINE 40-50 (0-5)
[2024-12-11] MEDS: cefTRIAXone 1 GM in Sodium Chloride 0.9% 50 ML IV ONE (21:42)
[2024-12-11] MEDS ORDERED: LORazepam ORAL Concentrate 1MG/0.5ML U/D PO PRN (22:43)
[2024-12-11] MEDS ORDERED: Acetaminophen 650 MG Supp RECTAL PRN (22:43)
[2024-12-11] MEDS ORDERED: Bacitracin Oint 1 GM U/D Packet TOP PRN (22:43)
[2024-12-11] MEDS ORDERED: Bisacodyl 10 MG Supp RECTAL PRN (22:43)
[2024-12-11] MEDS ORDERED: LORazepam 0.5 MG Tab PO PRN (22:43)
[2024-12-11] MEDS ORDERED: Acetaminophen 325 MG Tab PO PRN (22:43)
[2024-12-11] MEDS ORDERED: Aluminum Hydroxide/Magnesium Hydroxide/Simethicone Susp 30 ML Cup PO PRN (22:43)
[2024-12-11] MEDS ORDERED: diphenhydrAMINE 25 MG/10 ML Cup PO PRN (22:53)
[2024-12-11] MEDS: Enoxaparin 40 MG/0.4 ML Syringe SUBCUT SCH (23:07)
[2024-12-12] MEDS: Polyethylene Glycol 3350 Powder 17 GM Packet PO PRN (15:05)
[2024-12-12] MEDS: Enoxaparin 40 MG/0.4 ML Syringe SUBCUT SCH (20:07)
[2024-12-12] MEDS: cefTRIAXone 1 GM in Sodium Chloride 0.9% 50 ML IV SCH (20:07)
[2024-12-13] MEDS: Magnesium Hydroxide 400 MG/5 ML Susp 30 ML Cup PO PRN (08:32)
[2024-12-13 11:35] VITALS: BP 135/52; PULSE 67
== END 2024-12-13 13:00 | disposition home or self-care (01) | DRG 690 ==
LOC: JP.ED 19:24 → JP.MS 22:16
PROVIDERS: ADMIT Hospitalist; ATTEND Hospitalist
DX: N39.0 Urinary tract infection, site not specified (principal); F02.80 Dementia in other diseases classified elsewhere, unspecified severity, without behavioral disturbance, psychotic disturbance, mood disturbance, and anxiety; Z51.5 Encounter for palliative care; Z66 Do not resuscitate; H91.90 Unspecified hearing loss, unspecified ear; I25.10 Atherosclerotic heart disease of native coronary artery without angina pectoris; E78.00 Pure hypercholesterolemia, unspecified; K21.9 Gastro-esophageal reflux disease without esophagitis; G62.9 Polyneuropathy, unspecified; G30.9 Alzheimer's disease, unspecified; Z88.5 Allergy status to narcotic agent; Z79.899 Other long term (current) drug therapy; I25.2 Old myocardial infarction; Z98.49 Cataract extraction status, unspecified eye
CPT/HCPCS: 36415; 80053; 81001; 83605; 84145; 84484; 85025; 87086; 87088; 87186; 96361; 96365; 99285 ×2; J0696; J3490; J7030; 99223; 99233; 99238; A9270-GY; J1650